=== PATIENT | female | born 1995 | race Caucasian/White ===

== ENCOUNTER 2020-04-07 17:08 | Observation (INO) | payer OTHER, SELFPAY ==
[2020-04-07 17:46] VITALS: BP 129/85; PULSE 70; TEMP 36.2; BMI 43.9
--- NOTE | 2020-04-07 17:47 | OBADM ---
This patient, Niki Sanchez, admitted to the OB room 115 at 1708 for observation due to nausea and vomiting. Patient/family oriented to hospital policies and general routines including ID bracelet, bed and alarms, visiting hours, pain management, procedures, bathroom and other care routines, personal items, smoking policy, room service/diet, and visiting hours. Patient/Family are encouraged to report perceived risks to care and to ask questions if they do not understand what they are told or what they should do.
[2020-04-07] MEDS: DEXTROSE 5%/LACTATED RINGERS 1,000 ML 999 ML IV CONT (17:55)
[2020-04-07] MEDS: ONDANSETRON INJ 4 MG/2 ML VIAL IV PUSH (17:55)
[2020-04-07 18:06] LABS: Basophils Percent Auto 0.2 % (0.2-1.2); Eosinophils Percent Auto 0.2 % (0-4.4); Hematocrit 38.5 % (37.0-47.0); Immature Granulocyte Absolute 0.05 K/mm3 (0.00-0.031); Immature Granulocyte Percent A 0.4 % (0-0.5); Lymphocytes Absolute Auto 2.28 K/mm3 (0.9-3.2); Lymphocytes Percent Auto 20.4 % (18.3-44.2); Mean Corpuscular HGB Conc 36.4 g/dl (32-36); Mean Corpuscular Hemoglobin 32.8 pg (26-34); Mean Corpuscular Volume 90.2 fl (80-100); Mean Platelet Volume 10.8 fl (7.4-10.4); Monocytes Absolute Auto 0.5 K/mm3 (0.1-0.6); Monocytes Percent Auto 4.6 % (2.6-8.5); Neutrophils Absolute Auto 8.3 K/mm3 (1.3-6.7); Neutrophils Percent Auto 74.2 % (45.5-73.1); Platelet Count Result 237 k/mm3 (150-375); Red Blood Count 4.27 M/mm3 (4.2-5.4); Red Cell Distribution Width 12.1 % (11.5-14.5); White Blood Count 11.2 K/mm3 (4.5-10.0)
[2020-04-07 18:16] VITALS: BP 111/67; PULSE 59
[2020-04-07 18:20] LABS: Alanine Aminotransferase 15 U/L (4-35); Albumin Level 3.6 g/dL (3.5-5.1); Alkaline Phosphatase 129 U/L (38-126); Anion Gap 4 mmol/L (8-16); Aspartate Amino Transferase 22 U/L (14-36); Bilirubin,Total 0.8 mg/dL (0.2-1.3); Blood Urea Nitrogen 7 mg/dL (7-17); Carbon Dioxide 24 mmol/L (22-30); Chloride 104 mmol/L (98-107); Estimated CRCL calculation 181 ml/min; Estimated Glomerular Filt Rate > 60; Glucose 82 mg/dL (65-105); Potassium 3.7 mmol/L (3.4-5.0); Sodium 132 mmol/L (137-145); Uric Acid 5.1 mg/dL (2.5-7.5)
[2020-04-07 18:31] VITALS: BP 112/63; PULSE 63
[2020-04-07] MEDS: DEXTROSE 5%/LACTATED RINGERS 1,000 ML 150 ML IV CONT (18:53)
[2020-04-07 19:01] VITALS: BP 104/57; PULSE 62
[2020-04-07 19:07] LABS: Add Urine Microscopic? YES; Appearance Urine Clear (Clear); Bacteria Urine Trace /hpf; Bilirubin Urine Negative (Negative); Blood Urine Negative (Negative); Color Urine Yellow (Yellow); Glucose Urine UA 2+ mg/dL (Negative); Ketones Urine 2+ mg/dL (Negative); Leukocyte Esterase Ur Negative LEU/UL (Negative); Mucus Urine Rare /lpf; Nitrate Urine Negative (Negative); Protein Urine Negative (Negative); RBC Urine 0-2 /hpf (0-2); Specific Grav Ur 1.012 (1.001-1.035); Squamous Epithelial Cell Urine Rare /hpf (Few); WBC Urine 0-3 /hpf
[2020-04-07 19:31] VITALS: BP 109/44; PULSE 64
[2020-04-07 20:01] VITALS: BP 106/52; PULSE 57
--- NOTE | 2020-05-07 08:39 | PM.OBTRLD ---
OB - Triage/Final Diagnosis Visit Information Comments/Additional reasons for admission: I have assessed the risk for this patient, Niki Chairez Daniel, and determined that she would benefit from observation care. Evaluation Laboratory results: Laboratory Tests 04/07/20 04/07/20 04/07/20 17:50 17:50 17:50 WBC 11.2 H RBC 4.27 Hgb 14.0 Hct 38.5 MCV 90.2 MCH 32.8 MCHC 36.4 H RDW 12.1 Plt Count 237 MPV 10.8 H Immature Gran % (Auto) 0.4 Neut % (Auto) 74.2 H Lymph % (Auto) 20.4 [place] % (Auto) 4.6 Eos % (Auto) 0.2 Baso % (Auto) 0.2 Lymph # (Auto) 2.28 [place] # (Auto) 0.5 Eos # (Auto) 0.0 Baso # (Auto) 0.0 Abs Immat Gran (auto) 0.05 H Absolute Neuts (auto) 8.3 H Absolute Nucleated RBC 0.0 Nucleated RBC % 0.0 Sodium 132 L Potassium 3.7 Chloride 104 Carbon Dioxide 24 Anion Gap 4 L BUN 7 Creatinine 0.50 L Estim Creat Clear Calc 181 Estimated GFR > 60 Glucose 82 Uric Acid 5.1 Calcium 9.0 Total Bilirubin 0.8 AST 22 ALT 15 Alkaline Phosphatase 129 H Total Protein 7.0 Albumin 3.6 Urine Color Yellow Urine Appearance Clear Urine pH 6.0 Ur Specific [place] 1.012 Urine Protein Negative Urine Glucose (UA) 2+ H Urine Ketones 2+ H Ur Blood (Man) Negative Urine Nitrate Negative Urine Bilirubin Negative Urine Urobilinogen 4.0 H Leukocyte Esterase Rfl Negative Urine RBC 0-2 Urine WBC 0-3 Ur Squamous Epith Cells Rare Urine Bacteria Trace Urine Mucus Rare 04/07/20 17:50 WBC RBC Hgb Hct MCV MCH MCHC RDW Plt Count MPV Immature Gran % (Auto) Neut % (Auto) Lymph % (Auto) [place] % (Auto) Eos % (Auto) Baso % (Auto) Lymph # (Auto) [place] # (Auto) Eos # (Auto) Baso # (Auto) Abs Immat Gran (auto) Absolute Neuts (auto) Absolute Nucleated RBC Nucleated RBC % Sodium Potassium Chloride Carbon Dioxide Anion Gap BUN Creatinine Estim Creat Clear Calc Estimated GFR Glucose Uric Acid Cancelled Calcium Total Bilirubin AST ALT Alkaline Phosphatase Total Protein Albumin Urine Color Urine Appearance Urine pH Ur Specific [place] Urine Protein Urine Glucose (UA) Urine Ketones Ur Blood (Man) Urine Nitrate Urine Bilirubin Urine Urobilinogen Leukocyte Esterase Rfl Urine RBC Urine WBC Ur Squamous Epith Cells Urine Bacteria Urine Mucus Final Diagnosis (1) Nausea and vomiting: Code(s): R11.2 - Nausea with vomiting, unspecified Status: Acute
== END 2020-04-07 20:55 | disposition home or self-care (01) ==
PROVIDERS: Admitting Provider Obstetrics & Gynecology; Visit Provider Obstetrics & Gynecology
DX: O21.2 Late vomiting of pregnancy (principal); Z3A.34 34 weeks gestation of pregnancy
CPT/HCPCS: 36415; 80053; 81001; 84550; 85025; 96361; 96374; G0378; G0379; J2405; J7121

== ENCOUNTER 2020-04-19 19:25 | Observation (INO) | payer OTHER, SELFPAY ==
--- NOTE | 2020-04-19 19:25 | PC.NURSE ---
Arrived to labor and delivery with contractions and possible leakage of fluid. See OBIX documentation.
--- NOTE | 2020-04-19 22:00 | PC.NURSE ---
Patient is comfortable and has had no cervical change. Ptt states she has pain high right abdomen near ribs with contractions. Discussed early labor signs with pt. Pt comfortable with going home to rest and will return if contractions become more intsense or if rupture of membranes or any other problems.
[2020-04-19 22:08] VITALS: BMI 43.7
--- NOTE | 2020-04-19 22:09 | OBADM ---
This patient, Niki Sanchez, admitted to the OB room Labor/Delivery/Recovery 106 for observation. Patient/family oriented to hospital policies and general routines including ID bracelet, bed and alarms, visiting hours, pain management, procedures, bathroom and other care routines, personal items, smoking policy, room service/diet, and visiting hours. Patient/Family are encouraged to report perceived risks to care and to ask questions if they do not understand what they are told or what they should do.
--- NOTE | 2020-04-24 17:27 | PM.OBTRLD ---
OB - Triage/Final Diagnosis Visit Information Date of evaluation: 04/21/20 Reason for evaluation: threatened labor Comments/Additional reasons for admission: I have assessed the risk for this patient, Niki Sanchez, and determined that she would benefit from observation care.
== END 2020-04-19 22:04 | disposition home or self-care (01) ==
PROVIDERS: Admitting Provider Obstetrics & Gynecology; Visit Provider Obstetrics & Gynecology
DX: O47.03 False labor before 37 completed weeks of gestation, third trimester (principal); Z3A.36 36 weeks gestation of pregnancy
CPT/HCPCS: G0378; G0379

== ENCOUNTER 2020-04-23 03:28 | Inpatient (IN) | payer OTHER, SELFPAY ==
[2020-04-23] VITALS (14 sets, daily range): BP systolic 105–133; BP diastolic 49–86; PULSE 56–71; RESP 15–18; TEMP 36.6–36.9; O2SAT 98; BMI 43.0
[2020-04-23 04:37] LABS: Basophils Percent Auto 0.2 % (0.2-1.2); Eosinophils Absolute Auto 0.1 K/mm3 (0-0.3); Eosinophils Percent Auto 0.4 % (0-4.4); Hematocrit 36.4 % (37.0-47.0); Hemoglobin 12.5 g/dL (12.0-15.0); Immature Granulocyte Absolute 0.05 K/mm3 (0.00-0.031); Immature Granulocyte Percent A 0.4 % (0-0.5); Lymphocytes Absolute Auto 3.11 K/mm3 (0.9-3.2); Lymphocytes Percent Auto 27.8 % (18.3-44.2); Mean Corpuscular HGB Conc 34.3 g/dl (32-36); Mean Corpuscular Hemoglobin 31.2 pg (26-34); Mean Corpuscular Volume 90.8 fl (80-100); Mean Platelet Volume 11.6 fl (7.4-10.4); Monocytes Absolute Auto 0.5 K/mm3 (0.1-0.6); Monocytes Percent Auto 4.7 % (2.6-8.5); Neutrophils Absolute Auto 7.4 K/mm3 (1.3-6.7); Neutrophils Percent Auto 66.5 % (45.5-73.1); Platelet Count Result 190 k/mm3 (150-375); Red Blood Count 4.01 M/mm3 (4.2-5.4); Red Cell Distribution Width 12.4 % (11.5-14.5); White Blood Count 11.2 K/mm3 (4.5-10.0)
--- NOTE | 2020-04-23 04:49 | LDADM ---
This patient, Niki Sanchez, was admitted to Labor/Delivery/Recovery 105 on 04/23/20 at 03:28. Plans for labor, pain management and were discussed with patient. Patient/family oriented to hospital policies and general routines including ID bracelet, bed and alarms, visiting hours, pain management, procedures, bathroom and other care routines, personal items, smoking policy, room service/diet and guest tray routines, security routines, and visiting hours. Patient/Family are encouraged to report perceived risks to care and to ask questions if they do not understand what they are told or what they should do. See OBIX for further documentation.
[2020-04-23] MEDS: OXYTOCIN 30 UNITS/NS 500 ML 30 UNITS/500 ML BAG IV CONT (06:37)
[2020-04-23] MEDS: LACTATED RINGERS 1,000 ML 125 ML IV CONT (06:37)
[2020-04-23 09:26] LABS: Amphetamine Screen Urine Negative (Negative); Barbiturate Screen Urine Negative (Negative); Benzodiazepines Screen Urine Negative (Negative); Cannabinoid Screen Urine Positive (Negative); Cocaine Screen Urine Negative (Negative); Methadone Screen Urine Negative (Negative); Opiate Screen Urine Negative (Negative); Phencyclidine Screen Urine Negative (Negative)
--- NOTE | 2020-04-23 09:45 | P.PCNOB_ITS ---
OB - Delivery Note Procedure Delivery date: 04/23/20 Induction method: none Delivery monitor: external FHT and external uterine Route of delivery: Episiotomy description: None Laceration Description: None Quantitative Blood Loss (ml): 197 Anesthesia type: None Narrative: Precipitous delivery. [place] Baby Date of : 04/23/20 Time of : 09:31 Weeks of gestation at delivery: 37 Infant gender: Male Weight (pounds): 6 Weight (ounces): 12 presentation: vertex position: Right Occiput Anterior Placenta delivery description: Spontaneous score one minute: 9 score five minutes: 9
[2020-04-23] MEDS: OXYTOCIN 30 UNITS/NS 500 ML 30 UNITS/500 ML BAG 125 UNITS IV CONT (10:09)
[2020-04-23] MEDS: IBUPROFEN 600 MG TABLET PO (10:57)
[2020-04-23] MEDS: BENZOCAINE 20% AER SPR (*SP) 56 GM CAN 1 SPRAY TOPICAL (10:57)
[2020-04-23] MEDS: WITCH HAZEL 40 PADS 1 PAD TOPICAL (10:57)
--- NOTE | 2020-04-23 12:00 | OBPPTRN ---
Patient transferred to post room #285 via wheelchair. Support person present. Oriented to unit, room, information board, rooming in, admission packet and security measures. Patient verbalizes understanding.
[2020-04-24] MEDS: IBUPROFEN 600 MG TABLET PO (04:17)
[2020-04-24 04:56] LABS: Hematocrit 34.5 % (37.0-47.0); Hemoglobin 11.5 g/dL (12.0-15.0)
--- NOTE | 2020-04-24 07:56 | WPDOBADMIT ---
Obstetrics - Admit Note Admission Note: Late entry 24 y/o admitted with spontaneous rupture of membranes. record reviewed. No pertinent additions to the history and/or any subsequent changes in the physical findings that are not consistent with the expected course of the were found. Additions to the history and/or subsequent changes in the physical findings follow. None.
--- NOTE | 2020-04-24 08:54 | PM.OBPNVD ---
OB - PN: Subj Subjective Date/time seen: 04/24/20 08:54 Patient comments: no complaints baby status: doing well OB - PN: Obj Data Labs CBC & Chem 7: 04/24/20 04:25 Labs: Laboratory Results - last 24 hr 04/23/20 04/24/20 08:26 04:25 Hgb 11.5 L Hct 34.5 L Urine Opiates Screen Negative Urine Methadone Screen Negative Ur Barbiturates Screen Negative Ur Phencyclidine Scrn Negative Ur Amphetamine Screen Negative U Benzodiazepines Scrn Negative Urine Cocaine Screen Negative U Cannabinoids Screen Positive A OB - PN A/P Plan day: 1 Plan: routine care Time Spent With Patient Time: Total time spent is greater than 50% in coordination of care (as documented) at patient's floor/unit and/or counseling patient: Time with patient: less than 15 minutes Review of Systems Review of Systems: All systems reviewed & are unremarkable except as noted in HPI and below Exam Narrative: Exam Narrative: Fundus firm and vaginal flow controlled. No lower ext redness, warmth, or edema. Negative homans. Const: General: comfortable Chest: Breast/axilla inspection: normal inspection of the breasts Resp: Effort & Inspection: normal respiratory effort Cardio: Rate: regular rate GI: GI Palp: Yes Soft to palpation Psych: Appearance: grossly normal Affect: normal affect Attitude: cooperative Thought content: Yes Normal thought content present Judgement: Good judgement present (Psych)
[2020-04-24 09:12] LABS: Rapid Plasma Reagin Non-Reactive (NonReactive)
[2020-04-24 09:15] VITALS: BP 115/59; PULSE 62; RESP 18; TEMP 37; O2SAT 99
--- NOTE | 2020-04-24 10:57 | PC.NURSE ---
Pt. takes medications at bedtime.
--- NOTE | 2020-04-24 11:34 | PC.NURSE ---
Consulted with patient, reviewed feeding cues, frequencies, duration of feedings, feeding elimination flow sheet, and signs of adequate intake. Nipple care reviewed. Instructed mother to call out for RN assistance if she is unable to latch for feeding or she has discomfort with nursing. Mom states she is putting to breast then following with formula supplementation per her choice. Encouraged mom to call out for next feeding to have it assessed. Instructed feeding should be initiated three hours from start of last feeding or if feeding cues are noted before. Mother voiced understanding of information shared.
[2020-04-26 11:25] VITALS: BP 124/67; PULSE 73; RESP 20; TEMP 36.9; O2SAT 100
--- NOTE | 2020-04-27 08:08 | PM.OBDSVD ---
DS: Admitting Diagnosis Admitting Diagnosis Admitting Diagnosis: Spontaneous rupture of membranes OB - DS: Summary OB Procedures : None OB Procedures Intrapartum: Spontaneous Vag Delivery OB Procedures: : None Time Spent with Patient Time attestation: Total time spent providing and/or coordinating discharge services: DS: Data Data Completed and Pending Completed studies during hospitalization: Pending at discharge 04/23/20 10:26 Surgical [PTH] Routine Discharge Plan Discharge Consulting providers: Emelina Oliver Discharging Clinician: Nafisa Quinones Patient Disposition: Home, Self-Care Activity: as tolerated and pelvic rest Diet: regular Discharge Instructions: Education: Mom and Baby Guide Given to: Mother Follow-Up: Call your delivering provider's office for an appointment to be seen in: 4 Weeks Mom and baby should come to the [facility] for the follow-up appointment. Appointment Date/Time: April 26, 2020 at 11:00 am What to expect at your follow-up visit: Physical Assessment Call [phone] if you are unable to keep your appointment time. BREAST CARE: * Wear a snug supportive bra. * For engorgement discomfort: Breast Feeding: * Apply warm moist washcloths * Express milk as needed to relieve engorgement * Wear loose clothing * For sore nipples: * Identify correct latch-on * Apply warm moist washcloths before and after nursing * Air dry nipples after nursing * May apply Lansinoh cream to nipples EPISIOTOMY/PERINEAL CARE: * Until bleeding stops, use your bob bottle after urinating * Change your pad frequently throughout the day * No tub baths until seen by your physician - You may shower ACTIVITY: * Rest as much as possible. * Do not exercise or lift anything heavier than your baby (such as laundry or other children.) * Avoid stairs or driving as much as possible. * Do not put anything into the vagina. No douching, tampons, or sexual activity until seen by physician. NOTIFY PHYSICIAN IF YOU HAVE ANY QUESTIONS OR IF ANY OF THE FOLLOWING SYMPTOMS OCCUR: * If your perineum becomes red, swollen, or more painful than what you have experienced in the hospital. * If your vaginal bleeding becomes foul smelling. * If your vaginal bleeding becomes more heavy than a period or if your bleeding changes from pink to bright red. However, you may pass an occasional walnut-sized clot once or twice for the first week . * If you experience a sharp, shooting pain in you calves. * If you discover a hard, reddened area on your breast or if you experience flu-like symptoms. DIET: * Eat regular, well-balanced meals. * Drink plenty of fluids daily. If , drink to thirst. Patient Instructions: How to Stop Smoking (DC) Stand Alone Forms: General Discharge Information Follow-up/Referrals: Nafisa Quinones CNM [Certified Nurse Armature Balancer] - Discharge Medications: Continued prenat.vits,umm,mev-[id number] Tablet 1 tablet PO DAILY RF: 0 melatonin 10 mg Tablet 10 mg PO HS PRN (Reason: Sedation) RF: 0 fluoxetine 10 mg capsule 20 mg PO DAILY RF: 0 Date of admission: 04/23/20 03:28 Primary Care Provider: PHYSICIAN,MAIL SORTING SUPERVISOR Admitting Provider: Mitzy Root Attending physician on admission: Mitzy Root Condition: Stable
== END 2020-04-24 15:17 | disposition home or self-care (01) | DRG 560 ==
LOC: ANHLDR 05:42 → ANHOB2 12:15
PROVIDERS: Advanced Practice Midwife; Admitting Provider Obstetrics & Gynecology; Visit Provider Obstetrics & Gynecology
DX: O62.3 Precipitate labor (principal); Z37.0 Single live birth; Z3A.37 37 weeks gestation of pregnancy; Z28.21 Immunization not carried out because of patient refusal; O99.324 Drug use complicating childbirth; F12.90 Cannabis use, unspecified, uncomplicated; O69.89X0 Labor and delivery complicated by other cord complications, not applicable or unspecified
CPT/HCPCS: 36415; 80307; 85014; 85018; 85025; 86592; 86850; 86900; 86901; 88307; A9270; J2590; J7120

== ENCOUNTER 2021-08-15 13:30 | Emergency (ER) | payer OTHER, SELFPAY ==
--- NOTE | 2021-08-15 13:36 | ED.URI ---
HPI - URI/Sore Throat General Chief Complaint: Upper Respiratory Infection Stated Complaint: cough,nasal drainage Time Seen by Provider: 08/15/21 13:39 Source: patient Mode of arrival: ambulatory Limitations: no limitations History of Present Illness HPI Narrative: Ms. Sanchez is a 26-year-old female patient presenting to the clinic today with complaints of cough and nasal drainage x3 weeks. She reports she has been having some sinus pressure as well. Has been having postnasal drip that is causing a sore throat. Reports that her nasal drainage and productive cough is at times green, yellow, and clear. She denies any fever or chills. She has had positive exposure to COVID as COVID test and they were both negative. Related Data Home Medications Medication Instructions Recorded Confirmed baclofen 10 mg tablet 10 tablet TID 08/15/21 08/15/21 fluoxetine 20 mg capsule 20 cap DAILY 08/15/21 08/15/21 fluoxetine 40 mg capsule 40 cap DAILY 08/15/21 08/15/21 gabapentin 300 mg capsule 300 cap TID 08/15/21 08/15/21 Allergies Allergy/AdvReac Type Severity Reaction Status Date / Time Sulfa (Sulfonamide Allergy Unknown Hives Verified 08/15/21 13:46 Antibiotics) sulfamethoxazole Allergy Unknown Hives Verified 08/15/21 13:46 trimethoprim Allergy Unknown Unknown Verified 08/15/21 13:46 hydrocodone AdvReac Itching Verified 08/15/21 13:46 Review of Systems Review of Systems: Pertinent positives per HPI. Patient denies any fever, chills, rash, headache, visual changes, dizziness, shortness of breath, chest pain, palpitations, nausea, vomiting, diarrhea, constipation, abdominal pain, or any urinary issues. [facility] Family History Family History Sibling Hearing aid worn Cervical cancer Mother Chronic obstructive pulmonary disease Emphysema of lung Father Diabetes mellitus Heart disease Other Adopted Parents Social History Social History Years smoked: 6 Smoking status: Light tobacco smoker Tobacco type: cigarettes Second hand tobacco smoke exposure: Yes Substance use: never Spiritual care concerns: No Comments At the time of my signature, I reviewed and agree with the nursing past medical, surgical, social, and family history. There is no relevant family history pertinent to the patient complaint. Exam Narrative: General: Well-developed, morbidly obese, in no apparent distress Head: Normocephalic, atraumatic Eyes: Pupils equally round and reactive to light bilaterally, EOM intact, sclera and conjunctive clear, no discharge, lids normal Ears: TMs intact and clear, ear canals clear, no drainage, grossly hearing normal. Nose: Nares patent, clear nasal discharge, moderate inflammation, sinus tenderness over the maxillary and frontal sinuses Mouth: Oropharynx without lesions or masses, good dentition, MMM. Oropharynx red, postnasal drip with a lot of greenish-white mucus Neck: Supple, trachea midline, no enlargement of anterior or posterior cervical nodes, no thyroid masses or goiter palpable. Cardio: Regular rate and rhythm, s1 and s2 normal, no murmur appreciated. Resp: Clear to auscultation bilaterally anteriorly and posteriorly, no rhonchi, rales, wheezing or rubs Course Course Emergency Course: Portions of this record may have been created with voice recognition software. Level of Care: Express Care Visit Vital Signs Vital signs: Vital signs reviewed MDM - URI/Sore Throat MDM Narrative Medical decision making narrative: At the time of visit patient is resting comfortably on the exam table. Patient is reporting cough and runny nose x3 weeks with a sore throat and sinus headaches. I suspect the patient has sinusitis with postnasal drip I will treat with a course of Augmentin. Supportive measures were discussed with patient she voiced understanding of discharge
[2021-08-15 13:44] VITALS: BP 113/58; PULSE 78; RESP 16; TEMP 36.3; O2SAT 98
== END 2021-08-15 13:51 | disposition home or self-care (01) ==
PROVIDERS: Emergency Provider Nurse Practitioner Family
DX: J01.00 Acute maxillary sinusitis, unspecified (principal); F17.210 Nicotine dependence, cigarettes, uncomplicated
CPT/HCPCS: 99213; G0463

== ENCOUNTER 2022-12-08 15:54 | Emergency (ER) | payer OTHER, SELFPAY ==
[2022-12-08 16:14] VITALS: BP 126/74; PULSE 61; RESP 16; TEMP 36.7; O2SAT 100
--- NOTE | 2022-12-08 16:23 | ED.GENADULT ---
HPI - General Adult General Chief complaint: Upper Respiratory Infection Stated complaint: Shortness of Breath,Cough,Congestion Time Seen by Provider: 12/08/22 16:23 Source: patient Mode of arrival: ambulatory Limitations: no limitations History of Present Illness HPI narrative: Please 7-year-old female patient presents to the [facility] with complaints of cold symptoms for the past 3 weeks. Patient states that symptoms now arm pretty much a cough, congestion and right-sided ear pain. Patient states she thinks she also may be . Patient denies any recent fevers. Patient states she has had some diarrhea but denies any nausea vomiting. Patient states she did test herself for COVID at home about a week ago and was negative. Patient states she did take some leftover amoxicillin that she found in her cabinet for about a week but continues to have symptoms. Related Data Allergies Allergy/AdvReac Type Severity Reaction Status Date / Time hydrocodone AdvReac Mild Itching Verified 12/08/22 15:56 Sulfa (Sulfonamide AdvReac Mild Hives Verified 12/08/22 15:56 Antibiotics) sulfamethoxazole AdvReac Mild Hives Verified 12/08/22 15:56 trimethoprim AdvReac Mild Hives Verified 12/08/22 15:56 Review of Systems Review of Systems: CONSTITUTIONAL: Denies fever, chills, or sweats. EYES: Denies visual changes, redness, or discharge. ENT: Positive rhinorrhea, congestion, denies sore throat, positive right otalgia. CARDIOVASCULAR: Denies chest pain, palpitations, or edema. RESPIRATORY: positive cough , denies dyspnea. GASTROINTESTINAL: Denies abdominal pain, nausea, vomiting, or diarrhea. GENITOURINARY: Denies dysuria or hematuria. SKIN: Denies rash or itching. MUSCULOSKELETAL: Denies back pain, joint pain, or myalgia. NEUROLOGIC: Denies headache, numbness, or weakness. PSYCHIATRIC: Denies anxiety or depression. 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 Schizophrenia Social phobia Surgical History Surgical History (Updated 12/08/22 @ 16:32 by DANIEL Uribe) H/O adenoidectomy H/O inguinal hernia repair Hx of tonsillectomy Family History Family History Sibling Hearing aid worn Cervical cancer Mother Chronic obstructive pulmonary disease Emphysema of lung Father Diabetes mellitus Heart disease Other Adopted Parents Social History Social History Years smoked: 6 Smoking status: Light tobacco smoker Tobacco type: cigarettes Second hand tobacco smoke exposure: Yes Substance use: never Spiritual care concerns: No Comments At the time of my signature I agree with nursing past medical history, surgical, social, and family history. There is no relevant family history pertinent to the presenting complaint. Exam Narrative: GENERAL: Well-appearing, well-nourished, and in no acute distress. HEAD: Normocephalic, atraumatic. EYES: PERRLA and EOMI. ENT: Nares with erythema and edema noted bilaterally, no rhinorrhea or epistaxis. Mucous membranes moist. right TM with fluid and erythema to the tympanic membrane. Posterior pharynx with no erythema, tonsillar enlargement, exudates or lesions present. NECK: Supple. No lymphadenopathy CHEST: Very slight expiratory wheezing noted to the left upper lobe on auscultation. No respiratory distress. HEART: Regular rate and rhythm. No murmur heard. Normal peripheral pulses. ABDOMEN: Soft, nontender, nondistended, normal active bowel sounds. EXTREMITIES: Normal range of motion. No edema. SKIN: Warm, dry, no rash. NEURO: No focal deficits. Alert and oriented x3. Course Course Level of Care: Express
== END 2022-12-08 16:52 | disposition home or self-care (01) ==
PROVIDERS: Emergency Provider Nurse Practitioner Family
DX: H66.91 Otitis media, unspecified, right ear (principal); J06.9 Acute upper respiratory infection, unspecified; R05.9 Cough, unspecified; F17.210 Nicotine dependence, cigarettes, uncomplicated; J45.909 Unspecified asthma, uncomplicated; M79.7 Fibromyalgia; E78.00 Pure hypercholesterolemia, unspecified; G62.9 Polyneuropathy, unspecified; Q60.0 Renal agenesis, unilateral
CPT/HCPCS: 99213; G0463

== ENCOUNTER 2023-11-27 19:20 | Emergency (ER) | payer OTHER, SELFPAY ==
--- NOTE | 2023-11-27 19:22 | ED.URI ---
HPI - URI/Sore Throat General Chief Complaint: Upper Respiratory Infection Stated Complaint: ears plugged ,sinus issue,SOB,cough Time Seen by Provider: 11/27/23 19:21 Source: patient Mode of arrival: ambulatory Limitations: no limitations History of Present Illness HPI Narrative: Niki is a 28-year-old female patient presenting to the clinic today with complaints of ears feeling clogged, sinus pressure, cough, and shortness of breath x2 weeks. She reports no known fever chills. Is coughing up green phlegm. She is a current smoker. MD elicited complaint: cough, rhinorrhea, nasal congestion, sinus pain and other (Ear pain) Related Data Allergies Allergy/AdvReac Type Severity Reaction Status Date / Time hydrocodone AdvReac Mild Itching Verified 11/27/23 19:24 Sulfa (Sulfonamide AdvReac Mild Hives Verified 11/27/23 19:24 Antibiotics) sulfamethoxazole AdvReac Mild Hives Verified 11/27/23 19:24 trimethoprim AdvReac Mild Hives Verified 11/27/23 19:24 Review of Systems Review of Systems: Pertinent positives per HPI. Patient denies any fever, chills, rash, headache, visual changes, dizziness, chest pain, palpitations, nausea, vomiting, diarrhea, constipation, abdominal pain, or any urinary issues. 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 Schizophrenia Social phobia Surgical History Surgical History H/O adenoidectomy H/O inguinal hernia repair Hx of tonsillectomy Family History Family History Sibling Hearing aid worn Cervical cancer Mother Chronic obstructive pulmonary disease Emphysema of lung Father Diabetes mellitus Heart disease Other Adopted Parents Social History Social History Years smoked: 6 Smoking status: Light tobacco smoker Tobacco type: cigarettes Second hand tobacco smoke exposure: Yes Substance use: never Spiritual care concerns: No Comments At the time of my signature, I reviewed and agree with the nursing past medical, surgical, social, and family history. There is no relevant family history pertinent to the patient complaint. Exam Narrative: General: Well-developed, well nourished, in no apparent distress Head: Normocephalic, atraumatic Eyes: Pupils equally round and reactive to light bilaterally, EOM intact, sclera and conjunctive clear, no discharge, lids normal Ears: TMs intact and congested, ear canals clear, no drainage, grossly hearing normal. Nose: Nares patent, green nasal discharge, moderate inflammation, maxilla sinus tenderness. Mouth: Oral pharynx without lesions or masses, good dentition, MMM. Postnasal drip Neck: Supple, trachea midline, no enlargement of anterior or posterior cervical nodes, no thyroid masses or goiter palpable. Cardio: Regular rate and rhythm, s1 and s2 normal, no murmur appreciated. Resp: Expiratory wheezing over the right mid lobe, no rhonchi, rales, or rubs Course Course Emergency Course: Portions of this record may have been created with voice recognition software. Level of Care: Express Care Visit Vital Signs Vital signs: Vital Signs Temperature 36.7 C 11/27/23 19:29 Pulse Rate 93 11/27/23 19:29 Respiratory Rate 15 11/27/23 19:29 Blood Pressure 110/60 11/27/23 19:29 Pulse Oximetry 100 11/27/23 19:29 Oxygen Delivery Room Air 11/27/23 19:29 Temperature 36.7 C 11/27/23 19:29 Pulse Rate 93 11/27/23 19:29 Respiratory Rate 15 11/27/23 19:29 Blood Pressure 110/60 11/27/23 19:29 Pulse Oximetry 100 11/27/23 19:29 Oxygen Delivery Room Air 11/27/23 19:2
[2023-11-27 19:29] VITALS: BP 110/60; PULSE 93; RESP 15; TEMP 36.7; O2SAT 100
== END 2023-11-27 19:39 | disposition home or self-care (01) ==
PROVIDERS: Emergency Provider Nurse Practitioner Family
DX: J32.9 Chronic sinusitis, unspecified (principal); J40 Bronchitis, not specified as acute or chronic; F17.210 Nicotine dependence, cigarettes, uncomplicated; E78.00 Pure hypercholesterolemia, unspecified; M79.7 Fibromyalgia; J45.909 Unspecified asthma, uncomplicated; Q60.0 Renal agenesis, unilateral
CPT/HCPCS: 99213; G0463

== ENCOUNTER 2024-02-24 15:45 | Emergency (ER) | payer OTHER, SELFPAY ==
[2024-02-24 16:09] VITALS: BP 141/67; PULSE 101; RESP 16; TEMP 36.6; O2SAT 100
--- NOTE | 2024-02-24 17:20 | ED_ITS ---
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 She reports that symptoms have been present for at least 1 week. She has been taking tzdq-xzc-rpaowlm medications with poor relief. States that she has asthma that is typically well controlled, but has had some wheezing over the past couple of days. She is not in any respiratory distress at this time. Says that albuterol is controlling her symptoms well. She voices no other concerns or complaints at this time. Related Data Home Medications ?Medication ?Instructions ?Recorded ?Confirmed ?Last Taken ?Type gabapentin .ROUTE 02/24/24 Unknown History Allergies Allergy/AdvReac Type Severity Reaction Status Date / Time hydrocodone AdvReac Mild Itching Verified 02/24/24 17:04 Sulfa (Sulfonamide AdvReac Mild Hives Verified 02/24/24 17:04 Antibiotics) sulfamethoxazole AdvReac Mild Hives Verified 02/24/24 17:04 trimethoprim AdvReac Mild Hives Verified 02/24/24 17:04 Review of Systems Review of Systems: All systems reviewed & are unremarkable except as noted in HPI and below Constitutional: Constitutional: Reports no additional constitutional complaints and Reports body ache(s) ENT: Reports system reviewed and no additional complaints, except as documented and Reports nasal discharge Cardiovascular: Cardiovascular: Reports no additional cardiovascular complaints Respiratory: Respiratory: Reports no additional respiratory complaints, Reports change in phlegm color, Reports cough, Reports excessive phlegm production and Reports wheezing Gastrointestinal: Gastrointestinal: Reports no additional gastrointestinal complaints PMFSH Past Medical History Medical History Bipolar disorder with psychotic features Schizophrenia Anxiety Depression 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 Hypercholesteremia Hypermobility of joint Social phobia Fibromyalgia Neuropathy Asthma Surgical History Surgical History H/O adenoidectomy H/O inguinal hernia repair Hx of tonsillectomy Family History Family History Sibling Hearing aid worn Cervical cancer Mother Chronic obstructive pulmonary disease Emphysema of lung Father Diabetes mellitus Heart disease Other Adopted Parents Social History Social History Years smoked: 6 Smoking status: Light tobacco smoker Tobacco type: cigarettes Second hand tobacco smoke exposure: Yes Substance use: never Spiritual care concerns: No Comments At the time of my signature, I reviewed and agree with the nursing past medical, surgical, social, and family history. There is no relevant family history pertinent to the patient complaint. Exam Const: General: cooperative, no acute distress, alert and awake Orientation/consciousness: oriented to person, oriented to place and oriented to time HENMT: Head: normal to inspection Mouth: Yes moist mucous membranes Resp: Effort & Inspection: normal respiratory effort and able to speak in complete sentences Auscultation: clear to auscultation bilaterally, no crackles, no rales, no rhonchi and wheezes scattered wheezes and left lower Cardio: Palpation: normal PMI Rate: regular rate Rhythm: regular rhythm Heart sounds: S1 normal heart sound present and S2 normal heart sound present Neuro: General: oriented to person, oriented to place and oriented to time Cranial nerves: Yes CN's II-XII intact bilaterally Psych: Appearance: grossly normal Thought process: Normal thought process present Insight: Good insight present (Psych) Judgement: Good judgement present (Psych) Course Course Level of Care: Express Care Visit Vital Signs Vital signs: Vital Signs Temperature 97.9 F 02/24/24 16:09 Pulse Rate 101 H 02/24/24 16:09 Respiratory Rate 16 02/24/24 16:09 Blood Pressure 141/67 H 02/24/24 16:09 Pulse Oximetry 100 02/24/24 16:09 Temperature 97.9 F 02/24/24 16:09 Pulse Rate 101 H 02/24/24 16:09 Respiratory Rate 16 02/24/24 16:09 Blood Pressure 141/67 H 02/24/24 16:09 Pulse Oximetry 100 02/24/24 16:09 Reviewed MDM - URI/Sore Throat MDM Narrative Medical decision making narrative: History and exam consistent with atypical pneumonia. Patient not in any distress. Stable for discharge home on p.o. antibiotic therapy, at bronchodilator and steroid burst. Discharge instructions reviewed with patient, as well as provided in writing per nursing staff. The instructions also include specific and strict return/GO TO THE ER as well as f/u information. All questions have been answered, and the patient deny any further questions with discharge and discharge plan. Some parts of this dictation were generated by voice recognition software and may contain typographical and/or grammatical inaccuracies. Differential Diagnosis Differential diagnosis: Likely upper respiratory infection, bronchitis and influenza Discharge Plan Discharge Clinical Impression: Atypical pneumonia Patient Disposition: Home, Self-Care Condition: Stable Instructions: Antibiotic Form, Community Acquired Pneumonia (ED) Additional Instructions: Take medications as prescribed. Follow with primary care provider. Emergency department for new or worsened Patient Language: Croatian Prescriptions: New azithromycin 250 mg tablet See Rx Instructions .ROUTE .COMPLEX Qty: 6 0RF Rx Instructions: For 250 mg dose pack: take 500 mg today (day 1), then 250 mg for 4 days (days 2-5) prednisone 50 mg tablet 50 mg PO DAILY Qty: 5 0RF albuterol sulfate [Ventolin HFA] 90 mcg/actuation HFA aerosol inhaler 2 puff inhalation QID PRN (Reason: shortness of breath or wheezing) Qty: 8.5 0RF No Action gabapentin .ROUTE Follow-up/Referrals: PHYSICIAN,COUNTY AGRICULTURAL AGENT [Primary Care Provider] - Stand Alone Forms: Work/School Release IP Time of Disposition: 17:28
== END 2024-02-24 17:30 | disposition home or self-care (01) ==
PROVIDERS: Emergency Provider Nurse Practitioner Family
DX: J18.9 Pneumonia, unspecified organism (principal); F17.210 Nicotine dependence, cigarettes, uncomplicated
CPT/HCPCS: 99213; G0463

== ENCOUNTER 2025-02-05 09:26 | Emergency (ER) | payer OTHER, SELFPAY ==
--- OUTSIDE RECORDS SUMMARY | 2024-12-06 08:40 | XMS_ITS ---
Author Organization [facility] Address [address] [place] [address] Care Team Providers Care Rn Labor Delivery Name Role Phone Niki Paniagua Primary Care Provider Ulysses Byrd [phone] REASON FOR VISIT 4 week F/U Encounters Encounter Location Date Provider Diagnosis [address] [place] [address] 12/06/2024 Ulysses Byrd Plan Of Treatment No Information Progress Notes * LUNA NikiDOB:1995 ( 29 yo F)Acc No.[id number]:12/06/2024 UNLOCKED PROGRESS NOTE Patient: Niki DUPREE Provider: Juanito Byrd DNP, PMHNP-BC :1995 A ge:29 Y S ex:Female Date:12/06/2024 Address:[address] [place], [place] [id number] Pcp:Niki Paniagua Structured Data:Is there a n moiz you would prefer we call you? (Nombre que prefiere usar) : No Subjective: * Chief Complaints: * 1 . 4 week F/U. * Medical History: Objective: * Vitals: Assessment: Plan: * Treatment: * * Electronic signature of Joe Byrd APRN, [id number] on 02/05/2025 at 09:31 AM TIER AND DETONATOR Sign off status: Pending * Provider: Juanito Byrd DNP, PMHNP-BC Date: 0 12/06/2024 Generated for Kirk chamorro/[place]/Geo on: 1 04/07/2024 09:31 AM TIER AND DETONATOR
--- OUTSIDE RECORDS SUMMARY | 2024-12-22 08:00 | XMS_ITS ---
Author Organization [facility] Address [address] [place] [address] Care Team Providers Care Dictating Machine Transcriber Name Role Phone Niki Paniagua Primary Care Provider [phone] Ulysses Byrd [phone] REASON FOR VISIT 4 week F/U Encounters Encounter Location Date Provider Diagnosis [address] [place] [address] 12/22/2024 Ulysses Byrd Plan Of Treatment No Information Progress Notes * LUNA NikiDOB:1995 ( 29 yo F)Acc No.[id number]:12/22/2024 UNLOCKED PROGRESS NOTE Patient: Niki DUPREE Provider: Juanito Byrd DNP, CHAUNCEYP-BC :1995 A ge:29 Y S ex:Female Date:12/22/2024 Address:[address] [place], [place] [phone] Pcp:Niki Paniagua Structured Data:Is there a n moiz you would prefer we call you? (Nombre que prefiere usar) : No Subjective: * Chief Complaints: * 1 . 4 week F/U. * Medical History: Objective: * Vitals: Assessment: Plan: * Treatment: * * Electronic signature of Joe Byrd APRN, [id number] on 02/05/2025 at 09:32 AM SCHOOL BUS TECHNICIAN Sign off status: Pending * Provider: Juanito Byrd DNP, PMHNP-BC Date: Generated for Kirk chamorro/[place]/Geo on: 1 04/07/2024 09:32 AM SCHOOL BUS TECHNICIAN
--- OUTSIDE RECORDS SUMMARY | 2025-02-05 09:31 | XMS_ITS | Patient Health Record ---
Author Organization [facility] Address [address] [place] [address] Care Team Providers Care Information Technology Director Name Role Phone Niki Paniagua Primary Care Provider [phone] Ulysses Byrd Unavailable [phone] Allergies Allergen (clinical drug ingredient) Drug/Non Drug Allergy documented on EMR Reaction Allergy Type Onset Date Status Substance with sulfonamide structure and antibacterial mechanism of action (substance) Sulfa Antibiotics Unknown Drug Allergy Active Reason For Referral No Information Medications Medication SIG (Take, Route, Frequency, Duration) Notes Start Date End Date Status Gabapentin 300 MG 1 capsule Orally Onc e a day; Duration: 30 days Active FLUoxetine HCl 20 MG 1 capsule Orally On ce a day; Duration: 30 days Total 30mg daily Active FLUoxetine HCl 10 MG 1 capsule Orally On ce a day; Duration: 30 days Active Problems Problem Type SNOMED Code ICD Code Onset Dates Problem Status W/U Status Risk Notes Problem Generalized anxiety disorder (65507359) KENDRA (generalized anxiety disorder) (F41.1) Active confirmed Problem Overweight (477756761) Over weight (E66.3) Active confirmed Vital Signs Height 5ft 4in in 06/23/2024 Weight 208 lbs 06/23/2024 BMI 35.7 kg/m2 06/23/2024 Encounters Encounter Location Date Provider Diagnosis [address] [place] [address] 06/23/2024 Niki Paniagua Over weight E66.3 and KENDRA (generalized anxiety disorder) F41.[address] [place] [address] 07/20/2024 Niik Paniagua KENDRA (generalized anxiety disorder) F41.1 and Over weight E66.[address] [address] 10/06/2024 Niki Paniagua KENDRA (generalized anxiety disorder) F41.1 and Over weight E66.[address] [address] 01/11/2025 Niki Paniagua KENDRA (generalized anxiety disorder) F41.[address] [address] 12/06/2024 Niki Paniagua [address] [address] 01/10/2025 Niki Paniagua KENDRA (generalized anxiety disorder) F41.1 Assessments Encounter Date Diagnosis (ICD Code) Assessment Notes Treatment Notes Treatment Clinical Notes Section Notes 06/23/2024 KENDRA (generalized anxiety disorder) (ICD-10 - F41.1) 06/23/2024 Over weight (ICD-10 - E66.3) 07/20/2024 KENDRA (generalized anxiety disorder) (ICD-10 - F41.1) 10/06/2024 KENDRA (generalized anxiety disorder) (ICD-10 - F41.1) 01/10/2025 KENDRA (generalized anxiety disorder) (ICD-10 - F41.1) 01/11/2025 KENDRA (generalized anxiety disorder) (ICD-10 - F41.1) 10/06/2024 Over weight (ICD-10 - E66.3) 07/20/2024 Over weight (ICD-10 - E66.3) Plan Of Treatment No Information Insurance Providers Payer Name Payer Address Payer Phone Subscriber Number Group Number Insured Name Patient Relationship to Insured Coverage Start Date Coverage End Date [facility] [employer] [facility] [address] [place] [address] [id number] Niki Sanchez Self - patient is the insured 4 [facility] [employer] [facility] [address] [place] [address] [id number] Niki Sanchez Self - patient is the insured 5 Medical (General) History Medical History History ICD Code fibromyalgia 1 kidney neuropathy uterine deform panniculectomy depression social anxiety disorder attention deficit hyperactivity disorder Surgical History Surgery Date(Month/Year) tonsillectomy and adenoidectomy umbilical hernia repair penilectomumy
--- OUTSIDE RECORDS SUMMARY | 2025-02-05 09:32 | XMS_ITS | Clinical Summary ---
Author Organization [facility] Address [address] [place] [address] Care Team Providers Care Implementation Consultant Name Role Phone Merlyn Sheikh MD Primary Care Provider Source Comments [facility],non-owned Affiliates and Associated Physician Practices is amultiple site organization consisting of ambulatory clinics and hospital sitesin [place], [place], [place] and [place]. This disclosure is being madepursuant to the Care Everywhere program and may not contain all information available regarding this patient. Last updated 17.[facility] Allergies Active Allergy Reactions Criticality Noted Date Comments Ceftin GI Discomfort 09/07/2009 Sulfa Drugs Rash Low 12/17/2012 Medications * This document contains information received from the source organization and may not represent a complete record from that organization. * Be aware that medications may not be up to date on this document. Alwaysverify current medications with the patient. citalopram (CELEXA) 20 MG tablet Take 20 mg by mouth once daily. Active Lurasidone HCl (LATUDA) 120 MG TABS Take 120 mg by mouth at bedtime. Active traMADol (ULTRAM) 50 MG tablet Take 50 mg by mouth every 6 hours as needed. Active ibuprofen (MOTRIN) 600 MG tablet Take 600 mg by mouth every 6 hours as needed. 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 Gender Identity Not on file Sexual Orientation Not on file Last Filed Vital Signs Vital Sign Reading Time Taken Comments Blood Pressure 128/78 10/04/2010 10:13 AM CDT Pulse 80 10/04/2010 10:13 AM CDT Temperature - - Respiratory Rate 16 10/04/2010 10:1 3 AM CDT Oxygen Saturation - - Inhaled Oxygen Concentration - - Weight 131.9 kg (290 lb 11.2 oz) 12/17/2012 9:07 AM CDT Height 164.5 cm (5' 4.76) 12/17/2012 9:07 AM CD T Body Mass Index 48.73 12/17/2012 9:07 AM CDT Plan of Treatment Health Maintenance Due Date Last Done Comments HIV SCREENING 05/17/2010 HEPATITIS C SCREENING 05/13/2013 DTAP/TDAP/TD VACCINES (1 - Tdap) 05/17/2014 HEPATITIS B VACCINE (1 of 3 - 19+ 3-dose series) 05/17/2014 HPV VACCINE (1 - 3-dose SCDM series) 05/17/2022 DEPRESSION SCREENING 03/17/2024 COVID-19 VACCINE (1 - 2024-2 6 season) 2024 INFLUENZA VACCINE (#1) 2024 ZOSTER VACCINE (1 of 2) 05/17/2045 HIB VACCINE Aged Out No longer eligi ble based on patient's age to complete this topic MENINGOCOCCAL (Group B) VACC INE SHARED DECISION-MAKING Aged Out No longer eligibl e based on patient's age to complete this topic MENINGOCOCCAL GROUPS A/C/Y/W VACCINE Aged Out No longer eligible b ased on patient's age to complete this topic PNEUMOCOCCAL VACCINE Aged Out No long er eligible based on patient's age to complete this topic Insurance [id number] Care Teams Implementation Consultant Relationship Specialty Start Date End Date Merlyn Sheikh MD [address] [place] [id number] PCP - General 11/02/09
--- OUTSIDE RECORDS SUMMARY | 2025-02-05 09:32 | XMS_ITS | Clinical Summary ---
Author Organization [facility] Address [address] [place] [address] Care Team Providers Care Lace Mender Name Role Phone Rachana Major Primary Care Provider [phone] Kiko Flores MD Unavailable [phone] Allergies Active Allergy Reactions Criticality Noted Date Comments Cefuroxime Unknown,Other (See comments) Low 09/07/2009 Ciprofloxacin Nausea & Vomiting Low Codeine Dizziness,Vomiting Low Reaction: Dizziness Sulfa (Sulfonamide Antibiotics) Rash,Unknown Medium 12/17/2012 Medications FLUoxetine (PROzac) 40 mg capsule Take 60 mg by mouth nightly Active gabapentin (NEURONTIN) 800 mg tablet 800 mg 3 (three) times a day 2 Active baclofen (LIORESAL) 10 mg tablet Take 10 mg by mouth 3 (three) times a day as needed 2 Active oxyCODONE (ROXICODONE) 5 mg immediate release tabletIndications:P ain Take 1 tablet (5 mg total) by mouth every 4 (four) hours as needed for pain 20 tablet 2 Active doxycycline (VIBRAMYCIN) 100 mg capsule Take 1 tablet/capsu le (100 mg total) by mouth 2 (two) times a day 14 capsule 2 Active ondansetron ODT (ZOFRAN-ODT) 4 mg disintegrating tablet Take 1 tablet (4 mg total) by mouth every 8 (eight) hours as needed for nausea or vomiting 20 tablet 2 Active oxyCODONE-acetamino phen (PERCOCET) 5-325 mg per tabletIndications:P ain Take 1-2 tablets by mouth every 6 (six) hours as needed for pain 15 tablet 2 Active Active Problems Problem Noted Date Diagnosed Date 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 08/01/2021 Overview (08/01/2021): Added automatically from request for surgery [id number] 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 Umbilical discharge 05/04/2010 Abdominal pain 04/12/2010 Surgical History Surgery Date Site/Laterality Comments MI RPR UMBILICAL HERNIA < 5 YRS REDUCIBLE Umbilical Hernia Repair - (Added by TW Conv) MI TONSILLECTOMY & ADENOIDEC SHANON <AGE 12 Tonsillectomy With Adenoidectomy - (Added by TW Conv) VAGINA RECONSTRUCTION SURGERY N/A age 17; due to discomfort from 2 uterus/cervix since Medical History Medical History Date Comments Obstructive sleep apnea Obstruct zohaib sleep apnea - (Added by TW Conv) Asthma not medicated Kidney anomaly, 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 Never 10/03/2021 Q2: How many drinks containi ng alcohol do you have on a typical day when you are drinking? Patient does not drink Q3: How often do you have si x or more drinks on one occasion? 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 Gender Identity Not on file Sexual Orientation Not on file Last Filed Vital Signs Vital Sign Reading Time Taken Comments Blood Pressure 112/93 10/13/2021 4:26 PM CDT Pulse 90 10/13/2021 4:26 PM CDT Temperature 36.8 C (98.2 F) 10/13/2021 1:20 PM CDT Respiratory Rate 18 10/13/2021 4:26 PM CDT Oxygen Saturation 95% 10/13/2021 4:26 PM CDT Inhaled Oxygen Concentration - - Weight 104.3 kg (230 lb) 10/31/2021 10:56 AM CDT Height 162.6 cm (5' 4) 10/31/2021 10:56 AM CDT Body Mass Index 39.48 10/31/2021 10:56 AM CDT Plan of Treatment Not on file [place] For more information, please contact: [phone] * Full Code (Latest Code Status on File) Date Activated Date Inactivated Comments 10/11/2021 11:59 AM 10/12/2021 4:02 PM Care Teams Lace Mender Relationship Specialty Start Date End Date Rachana Major PA PCP - General Business Office Specialist 06/01/21 Kiko Flores MD Consulting Physician Plastic Surgery 10/12/21
--- OUTSIDE RECORDS SUMMARY | 2025-02-05 09:32 | XMS_ITS | Data Portability ---
Author Organization [facility] [place] Address [address] [place] [address] [place] [address] Assessment No assessment recorded. Plan of Treatment Reminders Order Date Submit Date Provider Last Modified By Organization Details Last Modified Time Details Appointments None recorded. Lab None recorded. Referral None recorded. Procedures None recorded. Surgeries None recorded. Imaging US, obstetric , follow-up [email or web address] [place], [place] [id number], [address], [place], [address], 15:55:41 US, obstetric , [email or web address], [address], [place], [address], 09:09:31 Medication Orders Prozac 20 mg capsule 021 [email or web address] [facility] 080, [address] [facility] [address], [address], 15:28:59 Patient TargetsNo targets recorded. Patient InstructionsNo instructions recorded. Reason for Referral None Reported. Results Created Date Observation Date Name Description Value Unit Range Abnormal Flag Note LastModifiedBy Organization Detail LastModifiedTime 04/24/19 21 04/24/2020 US, obste tricunao w-alondra miles interpretati on Not Available [facility] [address], [place], [address], 04/17/2020 13:05:57 04/30/19 21 04/30/2020 , mike rios md interpretati on Not Available [place] [address], [place], [address], 09/08/2019 10:48:44 05/01/19 21 05/01/2020 US, mike rios md interpretati on Not Available [place] [address], [place], [address], 09/15/2019 13:18:06 05/07/1905/07/2020 US, moody raymond, 2nd or 3rd yannae sarthak miles interpretati on Not Available [place] [address], [place], [address], 12/23/2019 11:07:43 05/17/19 21 05/16/2020 US, urszula rios md interpretati on Not Available [place] [address], [place], [address], 01/20/2020 12:10:40 05/17/19 21 05/16/2020 US, urszula rios md interpretati on Not Available [place] [address], [place], [address], 03/20/2020 17:12:43 05/18/1905/17/2020 US, urszula rios md interpretati on Not Available [place] [address], [place], [address], 02/17/2020 11:05:47 03/20/19 US, urszula rios No observ ation record ed. DIVINE Flores [address], [place], [address], 03/21/2020 13:19:26 04/17/19 21 US, obste tric, follo w-up No observ ation record ed. DIVINE Flores [address], [place], [address], 04/17/2020 17:15:57 Result Notes None recorded. Problems Name Problem SNOMED Code Status Onset Date Resolution Date Notes Provider Name and Address Organization Details Recorded Time Late entry into care [id number] Completed Felicity Bohnenstieh l null, [facility] 14:37:48 Smoker 26342925 Completed Felicity Bohnenstieh l null, [facility] 14:37:48 Cannabis dependen ce 48476048 Completed still using 04/04/20 Felicity Bohnenstieh l null, [facility] 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 14:37:48 Panic disorder 522291601 Completed Prozac 10mg Felicity Bohnenstieh l null, [facility] 14:37:48 Absent kidney 326842745 Completed maternal Felicity Bohnenstieh l null, [facility] 14:37:48 Delivery problem 668473504 Completed precipit ous delivery - induce labor at 39 weeks Felicity Bohnenstieh l null, [facility] 14:37:48 Finding of pattern of menstrua l cycle Completed 201503/21/2020 Irregula r interval between menstrua l bleeding ;Recorde d Elsewher e: No Locat ion: Alycia domínguez [facility] S ource: EHR Rigger Apprentice amador: N Practi ce ID: 0001 Chetan lable Time: 03:00:00 PM Chel Thrasher MD [address], [place], [address], [place] [facility] 09:44:[address] Concept Completed 201503/21/2020 Encounte r for surveill ance of other contrace ptives;R ecorded Elsewher e: No Locat ion: Alycia [facility] S ource: EHR Rigger Apprentice amador: N Darbyti ce ID: 0001 Chetan lable Time: 03:45:00 PM Chel Thrasher MD [address], [place], [address], [facility] 09:45:59 Pain in female genitali a Completed 201503/21/2020 Dysmenor juan carlos;Rec orded Elsewher e: No [facility] S ource: EHR Rigger Apprentice amador: N Darbyti ce ID: 0001 Chetan lable Time: 09:00:00 AM Chel Thrasher MD [address], [place], [address], [place] [facility] 09:44:35 Pelvic and perineal pain 683690638 Completed 201503/21/2020 Pelvic pain;Rec orded Elsewher e: No Locat ion: [facility] S ource: EHR Rigger Apprentice amador: N Darbyti ce ID: 0001 Chetan lable Time: 01:30:00 PM Chel Thrasher MD [address], [place], [address], [facility] 09:45:32 Acquired atrophy of uterus 78095827 Completed 201503/21/2020 Other specifie d noninfla mmatory disorder s of uterus;P ractice ID: [address], [place], [address], [facility] 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 0 17:41:28 Nausea 226265535 Completed 201503/21/2020 Nausea;P ractice ID: 0001 Chel Thrasher MD [address], [place], [address], [facility] 1 09:45:26 Acute vaginiti s 06003602 Completed 201503/21/2020 Acute vaginiti s;Practi ce ID: 0001 Chel Thrasher MD [address], [place], [address], [facility] 1 09:44:18 Secondar y amenorrh ea 171947438 Completed 201603/21/2020 Secondar y amenorrh ea;Recor ded Elsewher e: No Locat ion: [facility] S ource: EHR Rigger Apprentice amador: N Practi ce ID: 0001 Chetan lable Time: 01:45:00 PM Chel Thrasher MD [address], [place], [address], [facility] 1 09:45:52 Nausea and vomiting 87311741 Completed 201604/17/2020 Nausea with vomiting , unspecif ied;Abhijit rded Elsewher e: No Locat ion: [facility] S ource: EHR Rigger Apprentice amador: N Practi ce ID: 0001 Chetan lable Time: 01:45:00 PM Chel Thrasher MD [address], [place], [address], [facility] [address] 12:56:[address] Concept Completed 201603/21/2020 Encntr for public health internship exam (general ) (routine ) w/o abn findings ;Practic e ID: 0001 Chel Thrasher MD [address], [place], [address], [facility] 1 09:45:57 Infectio n screenin g Completed 201603/21/2020 Encounte r for screenin g for oth infec/pa rastc diseases ;Recorde d Elsewher e: No Locat ion: [facility] S ource: EHR Rigger Apprentice amador: N Practi ce ID: 0001 Chetan lable Time: 01:45:00 PM Chel Thrasher MD [address], [place], [address], [facility] 09:45:20 Uterine size for dates discrepa ncy Completed 201603/21/2020 Uterine size-ashvin e discrepa ncy, first trimeste r;Practi ce ID: 0001 Chel Thrasher MD [address], [place], [address], [facility] 09:46:09 Finding of contents of cervix 562648646 Completed 201603/21/2020 Weeks of gestatio n of pregnanc y not specifie d;Record ed Elsewher e: No Locat ion: [facility] S ource: EHR Rigger Apprentice amador: N Practi ce ID: 0001 Chetan lable Time: 01:30:00 PM Chel Thrasher MD [address], [place], [address], [facility] 09:44:43 Pregnanc y detectio n examinat ion Completed 201603/21/2020 Encounte r for pregnanc y test, result positive ;Practic e ID: 0001 Chel Thrasher MD [address], [place], [address], [facility] 09:45:34 Pregnanc y, childbir th and puerperi um finding Completed 201603/21/2020 Encounte r for supervis ion of normal 1st pregnanc y, 1st trimeste r;Record ed Elsewher e: No Locat ion: [facility] S ource: EHR Rigger Apprentice amador: N Practi ce ID: 0001 Chetan lable Time: 01:45:00 PM Chel Thrasher MD [address], [place], [address], [facility] 1 09:45:39 Low grade squamous intraepi thelial lesion on cervical Papanico laou smear 2245413799 9105 Active 2016 Low grade intrepit h lesion cyto smr crvx (LGSIL); Recorded Elsewher e: No Locat ion: [facility] S ource: EHR Rigger Apprentice amador: N Practi ce ID: 0001 Chetan lable Time: 11:00:00 AM Not Available [facility] 0 18:14:57 Pregnanc y, childbir th and puerperi um finding Completed 201603/21/2020 Encntr for suprvsn of normal first preg, second trimeste r;Practi ce ID: 0001 Chel Thrasher MD [address], [place], [address], [facility] 1 09:45:45 Finding of trunk structur e Active 2016 Oth diseases and conditio ns compl preg/chl dbrth;Pr actice ID: 0001 Not Available [facility] 0 18:14:57 Gestatio n period, 24 weeks 682384375 Completed 201603/21/2020 24 weeks gestatio n of pregnanc y;Record ed Elsewher e: No Locat ion: [facility] S ource: EHR Rigger Apprentice amador: N Practi ce ID: 0001 Chetan lable Time: 01:00:00 PM Chel Thrasher MD [address], [place], [address], [facility] 09:44:[address] Concept Completed 201603/21/2020 Maternal care for excess growth, second tri, unsp;Rec orded Elsewher e: No Locat ion: Alycia [facility] S ource: EHR Rigger Apprentice amador: N Practi ce ID: 0001 Chetan lable Time: 01:00:00 PM Chel Thrasher MD [address], [place], [address], [facility] 09:44:11 Gestatio n period, 23 weeks 43661388 Completed 201603/21/2020 23 weeks gestatio n of pregnanc y;Record ed Elsewher e: No Locat ion: Alycia domínguez [facility] S ource: EHR Rigger Apprentice amador: N Practi ce ID: 0001 Chetan lable Time: 01:00:00 PM Chel Thrasher MD [address], [place], [address], [facility] 09:44:54 Gestatio n period, 28 weeks 88127031 Completed 201603/21/2020 28 weeks gestatio n of pregnanc y;Record ed Elsewher e: No Locat ion: [facility] S ource: EHR Rigger Apprentice amador: N Practi ce ID: 0001 Chetan lable Time: 02:00:00 PM Chel Thrasher MD [address], [place], [address], [facility] 09:44:59 Spotting per vagina in pregnanc y 141487087 Completed 201603/21/2020 Spotting complica ting pregnanc y, third trimeste r;Practi ce ID: [address], [place], [address], [facility] 09:46:02 Gestatio n period, 34 weeks 35388152 Completed 201603/21/2020 34 weeks gestatio n of pregnanc y;Record ed Elsewher e: No Locat ion: [facility] S ource: EHR Rigger Apprentice amador: N Practi ce ID: 0001 Chetan lable Time: 10:00:00 AM Chel Thrasher MD [address], [place], [address], [facility] 1 09:45:01 Uterus bilocula ris 87684351 Completed 201603/21/2020 Other doubling of uterus;R ecorded Elsewher e: No Locat ion: [facility] S ource: EHR Rigger Apprentice amador: N Practi ce ID: 0001 Chetan lable Time: 04:00:00 PM Chel Thrasher MD [address], [place], [address], [facility] 1 09:46:17 Oligohyd ramnios Completed 201603/21/2020 Oligohyd ramnios, third trimeste r, not applicab le or unsp;Rec orded Elsewher e: No Locat ion: [facility] S ource: EHR Rigger Apprentice amador: N Practi ce ID: 0001 Chetan lable Time: 03:00:00 PM Chel Thrasher MD [address], [place], [address], [facility] 1 09:44:52 Gestatio n period, 35 weeks 41686704 Completed 201603/21/2020 35 weeks gestatio n of pregnanc y;Practi ce ID: 0001 Chel Thrasher MD [address], [place], [address], [facility] 1 09:45:04 Pregnanc y, childbir th and puerperi um finding Completed 201603/21/2020 Encntr for suprvsn of normal first preg, third trimeste r;Practi ce ID: 0001 Chel Thrasher MD [address], [place], [address], [facility] 09:45:43 Gestatio n period, 36 weeks 64978155 Completed 201603/21/2020 36 weeks gestatio n of pregnanc y;Record ed Elsewher e: No Locat ion: [facility] S ource: EHR Rigger Apprentice amador: N Practi ce ID: 0001 Chetan lable Time: 03:00:00 PM Chel Thrasher MD [address], [place], [address], [facility] 09:45:06 Prematur e labor 8460296 Completed 201603/21/2020 labor without delivery , third trimeste r;Practi ce ID: 0001 Chel Thrasher MD [address], [place], [address], [facility] 09:45:49 Gestatio n period, 37 weeks 98319833 Completed 201603/21/2020 37 weeks gestatio n of pregnanc y;Record ed Elsewher e: No Locat ion: [facility] S ource: EHR Rigger Apprentice amador: N Practi ce ID: 0001 Chetan lable Time: 03:00:00 PM Chel Thrasher MD [address], [place], [address], [facility] 09:45:10 Antenata l screenin g for growth retardat ion Completed 201603/21/2020 Intraute rine growth restrict ion (IUGR)/s mall-for -dates;R ecorded Elsewher e: No Locat ion: [facility] S ource: EHR Rigger Apprentice amador: N Practi ce ID: 0001 Chetan lable Time: 03:45:00 PM Chel Thrasher MD [address], [place], [address], [facility] 09:44:21 finding Completed 201603/21/2020 Matern care for oth or susp poor fetl grth, third tri, unsp;Pra ctice ID: 0001 Chel Thrasher MD [address], [place], [address], [facility] 09:44:40 Gestatio n period, 38 weeks 03171253 Completed 201603/21/2020 38 weeks gestatio n of pregnanc y;Practi ce ID: 0001 Chel Thrasher MD [address], [place], [address], [facility] 09:45:12 Normal pregnanc y in multigra angelita 0507139782 00861 Completed 201603/21/2020 Encounte r for suprvsn of normal pregnanc y, third trimeste r;Practi ce ID: 0001 Chel Thrasher MD [address], [place], [address], [facility] 09:45:30 Finding of gravid uterus Completed 201603/21/2020 Maternal care for oth abnlt of gravid uterus, third tri;Prac venu ID: 0001 Chel Thrasher MD [address], [place], [address], [facility] 09:44:46 Single live from singleto n pregnanc y 362553764 Completed 201603/21/2020 Single live ;Pr actice ID: 0001 Chel Thrasher MD [address], [place], [address], [facility] 09:45:54 Vaginola bial hernia Completed 201603/21/2020 Other specifie d noninfla mmatory disorder s of vagina;R ecorded Elsewher e: No Locat ion: Alycia domínguez [facility] S ource: EHR Rigger Apprentice amador: N Darbyti ce ID: 0001 Chetan lable Time: 09:30:00 AM MD [address], [place], [address], [facility] 1 09:46:25 Syphilis test finding 217848471 Completed 201603/21/2020 Encntr screen for infectio ns w sexl mode of transmis s;Record ed Elsewher e: No [facility]: EHR Rigger Apprentice amador: N Darbyti ce ID: 0001 Chetan lable Time: 09:30:00 AM MD [address], [place], [address], [facility] 1 09:46:05 Lochia finding Completed 201603/21/2020 Encounte r for routine postpart um follow-u p;Practi ce ID: 0001 Chel Thrasher MD [address], [place], [address], [facility] 1 09:45:23 Low risk human papillom avirus deoxyrib onucleic acid detected in specimen from cervix [id number] 3023999 Active 2016 Cervical low risk HPV DNA test positive ;Recorde d Elsewher e: No Locat ion: Alycia domínguez [facility] S ource: EHR Rigger Apprentice amador: N Practi ce ID: 0001 Chetan lable Time: 05:45:00 PM Not Available [facility] 0 18:14:58 Pregnanc y test negative 653938897 Completed 201603/21/2020 Encounte r for pregnanc y test, result negative ;Recorde d Elsewher e: No Locat ion: Alycia domínguez [facility] S ource: EHR Rigger Apprentice amador: N Darbyti ce ID: 0001 Chetan lable Time: 05:45:00 PM Chel Thrasher MD [address], [place], [address], [facility] 1 09:45:37 Uses combined oral contrace ption 273683655 Completed 201703/21/2020 Encounte r for surveill ance of contrace ptive pills;Pr actice ID: 0001 Chel Thrasher MD [address], [place], [address], [facility] 09:44:25 Hyperten weston in the obstetri c context Completed 201703/21/2020 Pre-exis ting essentia l hyperten weston comp the puerperi um;Pract ice ID: 0001 Chel Thrasher MD [address], [place], [address], [facility] 09:45:18 Low-lyin g placenta 070517047 Completed 201901/20/2020 resolved Felicity perera, [facility] 14:37:48 Pregnanc y 62688854 Completed 201905/09/2020 Felicity perera [facility] 14:37:52 Cigarett e smoker 52669289 Active 2019 [facility] 15:03:26 Problem Notes None recorded. Procedures Surgical History Date Name Laterality Status Provider Name and Address Organization Details Recorded Time 12/21/19 Date of Last Pap Smear completed Lizz Rodriguez [facility] 05/24/2020 12:54:56 tonsilectomy/ad enoids completed Quynh Freire [facility] 12/20/2019 17:34:45 hernia repair completed Quynh Freire [facility] 12/20/2019 17:34:54 laparoscopy completed Quynh Freire [facility] 12/20/2019 17:35:44 Imaging Results None recorded. Procedure Notes None recorded. Medical Equipment None Reported. Allergies Allergen ID Allergen Name Allergen Category Reaction Reaction Severity Criticality Documentation Date Start Date Code Code System Note Provider Name and Address Organization Details Recorded Time 1401 hydrocodo ne Not available Not available Not available Not available 10/06/2019 5489 RxNorm Quynh [facility] 0 10:03:21 1402 Substance with sulfonami de structure and antibacte rial mechanism of action (substanc e) medicatio n Not available Not available Not available 10/06/2019 34469 8003 SNOMED Quynh [facility] 0 10:03:27 Medications Name Sig Start Date Stop Date Status Note LastModified by Organization Details LastModified Time Seroquel 25 mg tablet take 1 tablet by oral route 2 times every day 06/10 completed Prescrib ed Elsewher e: Yes Loca tion: [facility] odify By: [email or web address] z Encoun lupe DateTime : 08/07/19 16 03:00:00 PM Not Available Not Available Not Available Zoloft 50 mg tablet take 1 tablet by oral route every day 01/29 completed Prescrib ed Elsewher e: No Locat ion: [facility] odify By: joseose Carmita ncounter DateTime : 08/14/19 17 01:30:00 PM Not Available Not Available Not Available Celexa 20 mg tablet take 1 tablet by oral route every day 04/04 completed Prescrib ed Elsewher e: No Locat ion: [facility] odify By: sharron Domínguez ncounter DateTime : 05/21/19 18 04:45:00 PM Not Available Not Available Not Available Flagyl 500 mg tablet take 1 tablet by oral route every 12 hours 04/15 completed Prescrib ed Elsewher e: No Locat ion: [facility] odify By: [email or web address] Encounte r DateTime : 02/26/20 17 12:23:20 PM Not Available Not Available Not Available fluoxetin e 10 mg capsule TAKE 1 CAPSULE BY MOUTH ONCE DAILY 05/25 completed Not Available Not Available Not Available cephalexi n 500 mg tablet take 1 tablet by oral route every 6 hours 06/10 completed Prescrib ed Elsewher e: No Locat ion: Alycia [facility] odify By: [email or web address] z Encoun lupe DateTime : 12/19/19 16 01:45:22 PM Not Available Not Available Not Available Tylenol-C odeine #3 300 mg-30 mg tablet take 1 - 2 tablet by oral route every 6 hours as needed 12/14 completed Prescrib ed Elsewher e: No Locat ion: Blancajoshuakirk domínguez [facility] odify By: amkcheko pittuntmorales DateTime : 11/17/19 16 01:26:08 PM Not Available Not Available Not Available ondansetr on 4 mg disintegr ating tablet 05/25 completed Not Available Not Available Not Available fluoxetin e 20 mg capsule Take 1 capsule every day by oral route. active Not Available Not Available No t Available fluticaso ne propionat e 50 mcg/actua tion nasal spray,tamra pension USE 1 SPRAY(S) IN EACH NOSTRIL ONCE DAILY 03/02 completed Not Available Not Available Not Available loratadin e 10 mg tablet TAKE 1 TABLET BY MOUTH ONCE DAILY 05/25 completed Not Available Not Available Not Available amoxicill in 875 mg-potass ium clavulana te 125 mg tablet TAKE 1 TABLET BY MOUTH TWICE DAILY FOR 10 DAYS 03/02 completed Not Available Not Available Not Available NuvaRing 0.12 mg-0.015 mg/24 hr vaginal insert 1 vaginal ring by vaginal route every month leave in place for 3 weeks, remove for 1 week 05/20 completed Prescrib ed Elsewher e: No Locat ion: Blancajoshuakirk domínguez [facility] odify By: sharron pittunter DateTime : 04/15/19 18 04:45:00 PM Not Available Not Available Not Available Zithromax 500 mg tablet take 2 tablets today 01/05 completed Not Available Not Available Not Available albuterol sulfate ER 4 mg tablet,ex tended release,1 2 hr take 1 tablet by oral route every 12 hours 04/15 completed Prescrib beatriz Ellison e: Yes [facility] By: olimpia Mera r DateTime : 08/07/19 03:00:00 PM Not Available Not Available Not Available melatonin 04/04 completed Not Available Not Available Not Available Tylenol 04/04 completed Not Available Not Available Not Available active Not Available Not Avai lable Not Available Vitals Date Recorded Body height Body mass index (BMI) Body weight Systolic And Diastolic Provider Name and Address Organization Details Last Updated DateTime 03/20/2020 162.56 cm 42.7 kg/m2 985483.50 013 g 119/77 mm[Hg] [facility] 03/20/2020 17:22:05 Date Recorded Body height Body mass index (BMI) Body weight Systolic And Diastolic Provider Name and Address Organization Details Last Updated DateTime 04/04/2020 162.56 cm 43.8 kg/m2 043413.05 435 g 121/78 mm[Hg] [facility] 04/04/2020 16:40:38 Date Recorded Body height Body mass index (BMI) Body weight Systolic And Diastolic Systolic And Diastolic Provider Name and Address Organization Details Last Updated DateTime 04/17/2020 162.56 cm 43.6 kg/m2 791749.4 6198 g 145/82 mm[Hg] 132/78 mm[Hg] [facility] 12:22:08 Date Recorded Body height Body mass index (BMI) Body weight Systolic And Diastolic Provider Name and Address Organization Details Last Updated DateTime 05/25/2020 162.56 cm 43.6 kg/m2 103584.46 g 110/68 mm[Hg] Lizz Rodriguez [facility] 05/25/2020 12:07:10 Social History Question Answer Notes LastModified by Organizat ion Details LastModified Time Tobacco Smoking Status Current Every Day Smoker Quynh Freire [facility] 12/21/2019 11:04:09 What Is Your Level Of Caffeine Consumption? Moderate Information not available 04/04/2020 What Was The Date Of Your Most Recent Tobacco Screening? 03/02/2020 [email or web address] Information not available 03/02/2020 At What Age Did You Start Smoking Tobacco? 18 Information not available 04/04/2020 How Much Tobacco Do You Smoke? 0.5 PPD Information not available 04/04/2020 Sex: Unknown Functional Status Question Answer Note LastModified by Organizat ion Details LastModified Time Do you or have you ever used any other forms of tobacco or nicotine? No Information not available 04/04/2020 What is your level of alcohol consumption? None [email or web address] Information not available 12/21/2019 Do you or have you ever used smokeless tobacco? Never used smokeless tobacco [email or web address] Information not available 03/02/2020 Do you or have you ever used e-cigarettes or vape? Never used electronic cigarettes [email or web address] Information not available 03/02/2020 What is your exercise level? Occasional Information not available 04/04/2020 Mental Status None recorded. Family History Relationship Description Onset Age of this Age Resolved Age Notes LastModified by Organization Details LastModified Time Mother Diabetes mellitus [email or web address] Not available 2019 10:01:33 Mother Asthma [email or web address] Not available 10:01:42 Mother Mental disorder osychi atric diseas e jgumber Not available 10/06/2019 10:02:01 Notes:Mother: Diabetes melli tus, Asthma, Psychiatric disease Medical History Condition Response Other Y Asthma Y Gynecological History Statement/Question Response Abnormal Pap N Date of Last Pap Smear 12/21/2019 Current Control Method None Date of LMP LMP Unknown Obstetrics History GPAL:G 2 P 2 0 0 2 Type Value Full Term 2 Living 2 Total 2 Past Encounters Encounter ID Performer Location Encounter Start Date Encounter Closed Date Diagnosis/Indication Diagnosis SNOMED-CT Code Diagnosis ICD10 Code Diagnosis IMO Codes Diagnosis Note [id number] Zafar Root MD [place] [address] [address] 09/08/2019 10:08:34 09/08/2019 10:49:31 Uncertain viability of 754855958 O36.80X9 Z3A.01 [id number] Zafar Root MD [place] [address],[place] [address] 09/15/2019 12:34:39 09/15/2019 14:55:10 Uncertain viability of 425490919 O36.80X9 Z3A.01 [id number] Zafar Root MD [place] [address],[place] [address] 09/21/2019 11:40:54 09/21/2019 12:28:03 Uncertain viability of 403470843 O36.80X9 Z3A.01 O34.01 [id number] Nafisa Quinones, [address] [address] 12/21/2019 10:47:22 12/29/2019 17:05:27 Gynecologic examination 72730860 Z01.419 test positive 814419658 Z32.01 Risk factors addressed: Tobacco Cessation, Safe Sexual Practices, environmen bhavesh, work hazards, travel restrictio ns, seat belt use.Eat a health well balanced diet, avoid alcohol, tobacco, and street drugs. Engage in daily low impact exercise, avoid temperatur e extremes, and cat, rodent, and bird feces.Avoi d travel to areas where zika virus is a concern.Fi rst look offered to patient. First look declined d/t late gestationa l age. Offered NIPT. Pt declined. Sequential Screen handout given and discussed with patient. ildbirth classes recommende d.New OB sheet given. If previous , counseling .Pt verbalizes that she understand s the importance of above instructio ns.All questions were answered. Patient reminded to have annual well woman examinatio n and address [address] . [id number] Zafar Root MD [place] [address],[place] [address] 12/23/2019 09:43:38 12/23/2019 11:34:49 screening for malformation 946410414 Z36.3 [id number] Zafar Root MD [place] [address],[place] [address] 01/06/2020 11:32:02 01/06/2020 12:29:55 Routine care 044385089 Z34.92 [id number] MD Blanca [place] [address],[place] [address] 01/20/2020 11:04:00 01/20/2020 16:05:29 screening 249532823 Z36.2 O44.40 O35.9XX0 O34.02 Z3A.23 [id number] Zafar Root MD [place] [address],[place] [address] 01/20/2020 11:04:27 01/20/2020 13:04:27 Single umbilical artery 271308550 Q27.0 [id number] Zafar Root MD [place] [address],[place] [address] 02/17/2020 10:31:01 02/17/2020 11:08:19 condition affecting obstetrical care of mother 027524036 O35.9XX0 O34.02 Z3A.27 [id number] Zafar Root MD [place] [address],[place] [address] 02/17/2020 10:32:01 02/17/2020 12:05:34 Anxiety 29975643 F41.9 Panic attack 084155027 F 41.0 [id number] Nafisa Quinones [facility] [address],[place] [address] 03/02/2020 14:51:23 03/02/2020 15:29:36 Routine care 625583267 Z34.90 [id number] MD Kadi Santiago [address],[place] [address] 03/20/2020 16:39:33 03/20/2020 17:18:10 Pre-existing maternal disease complicating 1416400307 6106 O35.9XX0 Z3A.32 [id number] MD Kadi Santiago [address],[place] [address] 03/20/2020 16:39:51 03/21/2020 17:34:27 Breech presentation 7316712 O32.1XX9 Anxiety in 880 8102634 9109 F41.9 Routine an tenatal care 193783207 Z34.83 Single umb ilical artery 684087088 Q27.0 [id number] Chel Thrasher MD [place] [address],[place] [address] 04/04/2020 16:27:54 04/04/2020 17:27:14 Routine care 311411843 Z34.83 [id number] Chel Thrasher MD [place] [address],[place] [address] 04/17/2020 12:15:33 04/17/2020 19:14:14 Routine care 959351564 Z34.83 Single umb ilical artery 446208573 Q27.0 Anxiety in 916 1003813 9109 F41.9 [id number] Chel Thrasher MD [place] [address],[place] [address] 04/17/2020 12:37:56 04/20/2020 15:55:40 condition affecting obstetrical care of mother 265140896 O35.9XX0 Z3A.36 [id number] Nafisa Quinones [facility] [address],[place] [address] 05/25/2020 11:57:15 05/25/2020 12:34:11 state 83825139 Z39.2 Continue to watch for signs/symp toms of post depression . Return one year from last pap smear for a well woman exam. Patient received above instructio ns, and questions have been answered. If you have any questions please call or respond to this email. Patient was made aware of the patient portal and may obtain a paper copy of today's plan if desired [facility] ion care management 879470667 Z30.9 Considerin g nexplanon but will let us know. Not in a [facility] ip. Health Concerns Section Related Observation LastModified by Organization Elif sim LastModified Time None Recorded Concern Status LastModified by Organization Details LastModified Time None Recorded Advance Directives Directive None Recorded Payers Insurance Date Sequence Insurance Name Policy Number Policy Haynes Covered Member ID Haynes Member ID Guarantor Name 10/04/2019 1 *SELF PAY* Kirill lynn Setar 01/07/2020 1 [employer] (POS) [id number] Chaz Sanchez [id number] Niki Sanchez 04/26/2020 MEDICAID-IN: [facility] Niki Sanchez [id number] Niki Sanchez 04/26/[address] [facility] (MEDICAID HMO) Niki Sanchez [id number] Niki Sanchez 05/22/2020 1 AET[employer] [facility] ON OR AFTER 02/15/2020 (MEDICAID REPLACEMENT - HMO) Niki Sanchez [id number] Niki Sanchez Notes Date Note Type Note Provider Name and Address Organization Details Recorded Time 03/20/2020 text/html Generic HPI TemplateReported by Patient Chel Thrasher MD [address], [place], [address], [facility] 03/21/2020 09:49:06 04/04/2020 text/html Generic HPI TemplateReported by Patient Chel Thrasher MD [address], [place], [address], [facility] 04/04/2020 17:05:47 04/17/2020 text/html Generic HPI TemplateReported by Patient Chel Thrasher MD [address], [place], [address], [facility] 04/17/2020 15:29:04 05/25/2020 text/html VisitReported by PatientHPIFor associated symptoms, patient reportsno abnormal bleeding,no vaginal discharge,no pelvic pain,laceration well healed,no constipation,no fecal incontinence,no dysuria,no urinary incontinence,no fever,no problems,no mastitis, andnormal mood.[facility] 05/25/2020 12:21:55 OBGyn Episode Ob Episode Information Episode Created Date Number of Fetuses Patient Bloodtype Patient rh Status Prepregnancy Weight lbs Domestic Partner Domestic Partner Phone Father Name Associate Professor Of Communication Status 10/06/19 20 1 CLOSED Fetus Data First Name Last Name Admitted to NICU Weight (g) Sex Living Outcome Pediatric Complications Fetus ID Race Codes Race Delivery Type 2409.48 0704 Full Term 3047 Vaginal Delivery Pablo Calculation Initial Pablo Date Initial Exam Date Initial Exam Provider Initial Ultrasound Date Last Menstrual Period Date Ultra Sound Weeks Gestation 0 Eighteen To Twenty Week Pablo Update Ultra Sound Date Fundal Height At Umbil Quickening Date Ultra Sound Latest Weeks Gestation Final Pablo Confirmed By Final Pablo Confirmed Date Final Pablo Date Ultra Sound Latest Days Gestation 0 0 Menstrual History Last Menstrual Date Menses Monthly On Bcp Conception Prior Menses Frequency Hcg Plus Date Menarche Onset Age Delivery Information Delivery Date Delivery Type Labor Anesthesia Weeks Gestation Incision Type Labor Labor Length Hrs Delivered By Post Complications Tubal Sterilization Discharge Date Comments 7 38.2 oligo an d IUGR , didelphys uterus Discharge Information Feeding Method Contraceptive Method Maternal HG B and HCT Levels Ob Episode Information Episode Created Date Number of Fetuses Patient Bloodtype Patient rh Status Prepregnancy Weight lbs Domestic Partner Domestic Partner Phone Father Name Associate Professor Of Communication Status 01/06/20 20 1 O Positive 218 CLOSED Fetus Data First Name Last Name Admitted to NICU Weight (g) Sex Living Outcome Pediatric Complications Fetus ID Race Codes Race Delivery Type false 3061.74 6 M true Full Term 5554 Vaginal Delivery Problems Problem Notes EIF LV noted 01/19 Problem Name Start Date End Date Resolution Snomed Code Not e Low-lying placenta 12/23/2019 01/20/2020 SELFRESOLVED 111766 007 resolved Late entry into care 694541797 Smoker 37406060 Cannabis dependence 44772683 still using 04/04/20 Single umbilical artery 630602845 2vc -growth u/s Panic disorder 435304534 Proza c 10mg Absent kidney 530769487 matern al Delivery problem 776424758 pre cipitous delivery - induce labor at 39 weeks Pablo Calculation Initial Pablo Date Initial Exam Date Initial Exam Provider Initial Ultrasound Date Last Menstrual Period Date Ultra Sound Weeks Gestation 05/13/2020 01/06/2020 09/21/2019 6 Eighteen To Twenty Week Pablo Update Ultra Sound Date Fundal Height At Umbil Quickening Date Ultra Sound Latest Weeks Gestation Final Pablo Confirmed By Final Pablo Confirmed Date Final Pablo Date Ultra Sound Latest Days Gestation 0 [email or web address] 03/20/2020 05/13/19 21 0 Pre- Flowsheet Flowsheet Date 01/06/2020 Magallanes Score Blood Edema Fundus Height Fundus Units Glucose Ketones Leukocytes Nitrite Labor Signs Protein Cervic Dilation Cervic Effacement Cervic Station 21 Type Weight in lbs Pre/Post Dialysis Refused Weight 222.11949842455 BP Diastolic BP Location Tested BP Systolic BP Type 66 R arm 110 sitting Fetus Heart Rate Present A 145 Fetus Movement Comments this patient is a 24-year-ol d 2 para 1001 at 21 weeks gestation who presents for initial visit. She has low-lying placenta, a uterine didelphys, she is marijuana user and a smoker. There is a two vessel umbilical cord. to have additional monitoring. Flowsheet Date 01/20/2020 Magallanes Score Blood Edema Fundus Height Fundus Units Glucose Ketones Leukocytes Nitrite Labor Signs Protein Cervic Dilation Cervic Effacement Cervic Station Type Weight in lbs Pre/Post Dialysis Refused BP Diastolic BP Location Tested BP Systolic BP Type Fetus Heart Rate Present Fetus Movement Comments Flowsheet Date 01/20/2020 Magallanes Score Blood Edema Fundus Height Fundus Units Glucose Ketones Leukocytes Nitrite Labor Signs Protein Cervic Dilation Cervic Effacement Cervic Station 23 trace Type Weight in lbs Pre/Post Dialysis Refused Weight 224.794813582150 BP Diastolic BP Location Tested BP Systolic BP Type 74 R arm 114 sitting Fetus Heart Rate Present A 145 Fetus Movement A Yes Comments good growth and fluid Flowsheet Date 02/17/2020 Magallanes Score Blood Edema Fundus Height Fundus Units Glucose Ketones Leukocytes Nitrite Labor Signs Protein Cervic Dilation Cervic Effacement Cervic Station Type Weight in lbs Pre/Post Dialysis Refused BP Diastolic BP Location Tested BP Systolic BP Type Fetus Heart Rate Present Fetus Movement Comments Flowsheet Date 02/17/2020 Magallanes Score Blood Edema Fundus Height Fundus Units Glucose Ketones Leukocytes Nitrite Labor Signs Protein Cervic Dilation Cervic Effacement Cervic Station 28 trace Type Weight in lbs Pre/Post Dialysis Refused Weight 234.062978102120 BP Diastolic BP Location Tested BP Systolic BP Type 68 R arm 113 sitting Fetus Heart Rate Present A 145 Fetus Movement A Yes Comments Anxiety panic and PTSD - to start prozac Flowsheet Date 03/02/2020 Magallanes Score Blood Edema Fundus Height Fundus Units Glucose Ketones Leukocytes Nitrite Labor Signs Protein Cervic Dilation Cervic Effacement Cervic Station neg none 31 neg Type Weight in lbs Pre/Post Dialysis Refused Weight 236.302455560267 BP Diastolic BP Location Tested BP Systolic BP Type 75 125 Fetus Heart Rate Present A 148 Fetus Movement A Yes Comments Pt just started prozac 5 day s ago. She has already noticed a improvement and is very happy that she finally started taking it. Flowsheet Date 03/20/2020 Magallanes Score Blood Edema Fundus Height Fundus Units Glucose Ketones Leukocytes Nitrite Labor Signs Protein Cervic Dilation Cervic Effacement Cervic Station Type Weight in lbs Pre/Post Dialysis Refused BP Diastolic BP Location Tested BP Systolic BP Type Fetus Heart Rate Present Fetus Movement Comments Flowsheet Date 03/20/2020 Magallanes Score Blood Edema Fundus Height Fundus Units Glucose Ketones Leukocytes Nitrite Labor Signs Protein Cervic Dilation Cervic Effacement Cervic Station neg trace 34 trace Type Weight in lbs Pre/Post Dialysis Refused Weight 249.571599932933 BP Diastolic BP Location Tested BP Systolic BP Type 77 119 Fetus Heart Rate Present A 155 Fetus Movement A Yes Comments Doing well overall. Prozac h elping anxiety, mom has noticed she is happier. Still some anxiety, but managable. US today for growth (2VC) normal 50%. Breech. Discussed breech, will try hands/knees, if remains breech at next US 36 weeks will discuss options more. Given uterus didelphys ECV may be less likely to work. Precautions given. Flowsheet Date 04/04/2020 Magallanes Score Blood Edema Fundus Height Fundus Units Glucose Ketones Leukocytes Nitrite Labor Signs Protein Cervic Dilation Cervic Effacement Cervic Station neg none 38 trace Type Weight in lbs Pre/Post Dialysis Refused Weight 255.761318204108 BP Diastolic BP Location Tested BP Systolic BP Type 78 121 Fetus Heart Rate Present A 140 Fetus Movement A Yes Comments Doing fine. Worried if still breech- US next visit for growth and presentation. GBs next. Pt admits to MJ use- encouraged cessation. Flowsheet Date 04/17/2020 Magallanes Score Blood Edema Fundus Height Fundus Units Glucose Ketones Leukocytes Nitrite Labor Signs Protein Cervic Dilation Cervic Effacement Cervic Station neg trace 38 neg 3cm 40% -3 Type Weight in lbs Pre/Post Dialysis Refused Weight 254.795449711045 BP Diastolic BP Location Tested BP Systolic BP Type 82 145 78 132 Fetus Heart Rate Present A 145 Fetus Movement A Yes Comments Doing ok, anxiety worsening some as getting closer to delivery, couldn't sleep last night worried about being breech still. Vertex on cervical exam. Will increase prozac to 20 mg per pt request. GBS done and discussed. Plan IOL 39 weeks for history of precipitous delivery. US today EFW normal, vertex! Flowsheet Date 04/17/2020 Magallanes Score Blood Edema Fundus Height Fundus Units Glucose Ketones Leukocytes Nitrite Labor Signs Protein Cervic Dilation Cervic Effacement Cervic Station Type Weight in lbs Pre/Post Dialysis Refused BP Diastolic BP Location Tested BP Systolic BP Type Fetus Heart Rate Present Fetus Movement Comments Menstrual History Last Menstrual Date Menses Monthly On Bcp Conception Prior Menses Frequency Hcg Plus Date Menarche Onset Age Genetic Screening And Infection History Question Response Note Mental Retardation/Autism false Patient's Age Will Be 35 Years Or Older At Estim ated Date of Delivery false Thalassemia (Irish, Uruguayan, Mediterranean, Or Background): MCV < 80 false Neural Tube Defect (Meningomyelocele, Spina Bifi da, Or Anencephaly) false Congenital Heart Defect false Down Syndrome false Dusty-Sachs (eg, Adventist, Cajun, Amharic-Tanzanian) f alse Amelia Disease false Sickle Cell Disease Or Trait () false Hemophilia Or Other Blood Disorders false Muscular Dystrophy false Cystic Fibrosis false Ino's Chorea false Intellectual Disability/Autism false If Yes, Was Person Tested For Fragile X? false Other Inherited Genetic Or Chromosomal Disorder false Maternal Metabolic Disorder (eg, Type 1 Diabetes , PKU) false Patient Or Baby's Father Had A Child With Defects Not Listed Above false Recurrent Loss, Or A Stillbirth false Medications (including Suppl ements, Vitamins, Herbs, OTC Drugs), Illicit/Recreational Drugs, Alcohol false If Yes, Agent(s) And Strength/Dosage false Any Other Genetic History false Live With Someone With TB Or Exposed To TB false Patient Or Partner Has History Of Genital Herpes false Rash Or Viral Illness Since Last Menstrual Perio d false History Of STD, Gonorrhea, Chlamydia, HPV, Syphi lis false Other Infection History false History of HIV false History of Hepatitis false Prior GBS-infected child false Hemoglobinopathy Or Carrier false Other Structural Defect false Recent Travel History Outside of Country false Delivery Information Delivery Date Delivery Type Labor Anesthesia Weeks Gestation Incision Type Labor Labor Length Hrs Delivered By Post Complications Tubal Sterilization Discharge Date Comments 1 Sponta neous None 37.1 false Nafisa Quinones CNM 2 vessel cord Discharge Information Feeding Method Contraceptive Method Maternal HG B and HCT Levels Breast
--- OUTSIDE RECORDS SUMMARY | 2025-02-05 09:32 | XMS_ITS | Clinical Summary ---
Author Organization [facility] Address [address] [place] [address] Phone Care Team Providers Care Still Operator Name Role Phone Unavailable Primary Care Provider Unavailabl e Social History Tobacco Use Types Packs/Day Years Used Date Smoking Tobacco: Never Assessed Comments Unknown Sex and Gender Information Value Date Recorded Sex Assigned at Not on file Legal Sex Female 11:42 PM CDT Gender Identity Not on file Sexual Orientation Not on file Plan of Treatment Not on file Insurance [place]ID [place]
[2025-02-05 09:38] VITALS: BP 104/60; PULSE 60; RESP 18; TEMP 36.6; O2SAT 100
--- NOTE | 2025-02-05 09:54 | ED_ITS ---
HPI - URI/Sore Throat General Chief Complaint: Upper Respiratory Infection Stated Complaint: sinus patient presents to [facility] with complaints nasal congestion, nasal drainage, productive cough, wheezing, occasional shortness of breath, fatigue, hot flashes, and chills that began about 2 weeks ago. Worsening symptoms noted over the last 2-3 days. Patient reports she has needed an inhaler in the past and also has had pneumonia In the past. Denies known fever, dizziness, nausea, vomiting, diarrhea Related Data Home Medications ?Medication ?Instructions ?Recorded ?Confirmed ?Last Taken ?Type fluoxetine 10 mg capsule mg 02/05/25 Unknown History gabapentin 300 mg capsule mg 02/05/25 Unknown History Allergies Allergy/AdvReac Type Severity Reaction Status Date / Time hydrocodone Allergy Mild Itching Verified 02/05/25 09:45 Sulfa (Sulfonamide Allergy Mild Hives Verified 02/05/25 09:45 Antibiotics) sulfamethoxazole Allergy Mild Hives Verified 02/05/25 09:45 trimethoprim Allergy Mild Hives Verified 02/05/25 09:45 Review of Systems Constitutional: Constitutional: Reports as per HPI, Reports chills, Reports fatigue, Denies fever(s) and Denies weakness Eyes: Eyes: Reports no additional eye complaints ENT: Reports as per HPI, Denies vertigo, Denies dizziness, Reports nasal congestion and Reports sore throat Comments: sinus pain Cardiovascular: Cardiovascular: Reports no additional cardiovascular complaints Respiratory: Respiratory: Reports as per HPI, Reports chest congestion, Reports cough, Reports dyspnea and Reports wheezing Gastrointestinal: Gastrointestinal: Reports as per HPI, Denies abdominal pain, Denies diarrhea, Denies nausea and Denies vomiting Genitourinary: Genitourinary: Reports no additional female genitourinary complaints Musculoskeletal: Musculoskeletal: Reports as per HPI and Denies back pain Integumentary/Breasts: Skin/Breast: Reports as per HPI, Denies pruritus, Denies erythema and Denies rash Neurologic: Reports as per HPI, Denies vertigo, Denies dizziness, Reports headache(s) and Denies weakness Psychiatric: Psychiatric: Reports no additional psychiatric complaints Endocrine: Endocrine: Reports no additional endocrine complaints Hematologic/Lymphatic: Hematologic/Lymphatic: Reports no additional hematologic/lymphatic complaints Allergic/Immunologic: Allergic/Immunologic: Reports as per HPI and Reports wheezing Comments: seasonal allergies PMFSH Past Medical History Medical History Bipolar disorder with psychotic features Schizophrenia Anxiety Depression 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 Hypercholesteremia Hypermobility of joint Social phobia Fibromyalgia Neuropathy Asthma Surgical History Surgical History H/O adenoidectomy H/O inguinal hernia repair Hx of tonsillectomy Family History Family History Sibling Hearing aid worn Cervical cancer Mother Chronic obstructive pulmonary disease Emphysema of lung Father Diabetes mellitus Heart disease Other Adopted Parents Social History Social History Years smoked: 6 Smoking status: Light tobacco smoker Tobacco type: cigarettes Second hand tobacco smoke exposure: Yes Substance use: never Spiritual care concerns: No Course Course Level of Care: Express Care Visit Vital Signs Vital signs: Vital Signs Temperature 97.8 F 02/05/25 09:38 Pulse Rate 60 02/05/25 09:38 Respiratory Rate 18 02/05/25 09:38 Blood Pressure 104/60 02/05/25 09:38 Pulse Oximetry 100 02/05/25 09:38 Oxygen Delivery Room Air 02/05/25 09:38 Temperature 97.8 F 02/05/25 09:38 Pulse Rate 60 02/05/25 09:38 Respiratory Rate 18 02/05/25 09:38 Blood Pressure 104/60 02/05/25 09:38 Pulse Oximetry 100 02/05/25 09:38 Oxygen Delivery Room Air 02/05/25 09:38 MDM - URI/Sore Throat MDM Narrative Medical decision making narrative: 2 weeks of symptoms with worsening symptoms. The patient was evaluated by myself in the express care. History is obtained from patient who is an independent historian and physical exam was performed. Available medical records were reviewed at this time. Exam findings show no acute concerns or changes; patient is non-toxic appearing and is in no distress. Patient is appropriate for outpatient treatment and follow-up. I have evaluated and discussed social determinants of health with the patient that could potentially impact subsequent diagnosis and treatment plans. Differential diagnosis and treatment plan were discussed with the patient. Patient agrees with discussion and after shared medical decision making agrees with plan of care. All questions were answered to the patient's satisfaction. Differential Diagnosis Differential diagnosis: Likely upper respiratory infection, croup, otitis media, sinusitis, bronchitis, influenza and pharyngitis Medical Records Attestation: I reviewed the patient's medical records. Discharge Plan Discharge Clinical Impression: Sinusitis, Bronchitis Patient Disposition: Home Condition: Stable Instructions: Antibiotic Form, Sinusitis (ED), Acute Bronchitis (ED) Additional Instructions: Take the antibiotics as directed for the entire course. Do not miss any doses. What you are taking antibiotics and is recommended to take a probiotic or have yogurt daily to return the good gut bacteria to your system. This can also help with acute diarrhea while taking antibiotics. It can take 24-48 hours for the antibiotics to start to relieve your symptoms continue to take these medications to help with various symptoms: Tylenol or Motrin for pain, headache, or fever Flonase/fluticasone or Nasacort/triamcinolone nasal spray- helps with congestion and nasal drainage. Sudafed/pseudoephedrine helps with sinus pain and congestion. Caution with high blood pressure. Use a humidifier or vaporizer at night. Drink plenty of water. 8-10 glasses per day. Mucinex/guaifenesinas directed and be sure to take with 8oz of water. Warm compresses over the forehead and cheeks to promote sinus drainage. Return to urgent care or go to the ER for new or worsening symptoms. Follow up with Primary provider if not improved after 1 week. Patient Language: Persian Prescriptions: New doxycycline monohydrate 100 mg capsule 100 mg PO BID Qty: 20 0RF prednisone 50 mg tablet 50 mg PO DAILY Qty: 7 0RF codeine-guaifenesin [Guaifenesin AC] 10-100 mg/5 mL liquid 5 ml PO Q6H PRN (Reason: cough) Qty: 120 0RF albuterol sulfate [Ventolin HFA] 90 mcg/actuation HFA aerosol inhaler 2 puff inhalation QID PRN (Reason: shortness of breath or wheezing) Qty: 8.5 0RF No Action fluoxetine 10 mg capsule gabapentin 300 mg capsule Follow-up/Referrals: Gabriel Briggs MD [Primary Care Provider, [facility]] Time of Disposition: 09:57
== END 2025-02-05 10:00 | disposition home or self-care (01) ==
PROVIDERS: Emergency Provider Nurse Practitioner Family; PCP Family Medicine
DX: J32.9 Chronic sinusitis, unspecified (principal); J40 Bronchitis, not specified as acute or chronic; F17.210 Nicotine dependence, cigarettes, uncomplicated; E78.00 Pure hypercholesterolemia, unspecified; M79.7 Fibromyalgia; G62.9 Polyneuropathy, unspecified; J45.909 Unspecified asthma, uncomplicated; Q60.0 Renal agenesis, unilateral; F41.9 Anxiety disorder, unspecified; F32.A Depression, unspecified
CPT/HCPCS: 99213; G0463